=== PATIENT | male | born 1950 | race Caucasian/White ===

== ENCOUNTER → 2016-12-11 | Outpatient (CLI) | payer MEDICARE, OTHER ==
[~2016-12-11] MED LIST: /GLYB5TA PO; /WARF5TA PO; ACET65TA OR; ALDA25TA2 OR; ALLO15TA GT; AMLO10TA2 PO; AMLO10TAB; AMMO12CR4 EX; ATEN50TA2 PO; CO Q10 PO; CO Q10CA PO; COUM10TA OR; COUM1TAB17 PO; D 1010004 PO; FISH100049 PO; FOSI40TA PO; FURO1TAB15 PO; FURO80TA2 PO; GLUC1000 OR; GLUC1000 PO; INSULANT SC; K-TA10TA2 PO; LIVA4TAB PO; METF1000 PO; MULT1CHW39 PO; MULTIVIT PO; NIAC500T PO; NOVOINJ3 SC; PERC5TAB8 OR; SPIR50TA2 PO; [UNRECOGNIZED DRUG - OTHER] PO; byetta SC; kcl; potassium chloride PO
[2016-12-11 11:15] LABS: INR 2.25
[2016-12-11 11:16] LABS: ALBUMIN/GLOBULIN RATIO 1.18 (1.00-1.93); ALKALINE PHOSPHATASE 77 U/L (45-117); ALT/SGPT 45 U/L (12-78); ANION GAP 10 MEQ/L (8-16); AST/SGOT 25 U/L (15-37); BILIRUBIN,TOTAL 0.4 MG/DL (0.2-1.0); BLOOD UREA NITROGEN 15 MG/DL (7-18); CALCIUM LEVEL 9.3 MG/DL (8.8-10.2); CARBON DIOXIDE LEVEL 25 MEQ/L (21-32); CHLORIDE LEVEL 103 MEQ/L (98-107); CREATININE FOR GFR 1.14 MG/DL (0.70-1.30); GLOMERULAR FILTRATION RATE > 60.0 (>49); GLUCOSE, FASTING 187 MG/DL (80-110); POTASSIUM SERUM 4.5 MEQ/L (3.5-5.1); SODIUM LEVEL 138 MEQ/L (136-145); TOTAL PROTEIN 7.4 GM/DL (6.4-8.2)
--- NOTE | 2016-12-11 11:35 | REP ---
Chest two views HISTORY: Hypertension Comparison: 12/13/2010 The lungs are clear. The cardiac silhouette is enlarged. The pulmonary vasculature is normal in appearance. There are old compression fractures of several mid and lower thoracic vertebral bodies. IMPRESSION: Cardiomegaly. Signed by Arpan Hinojosa MD 12/11/2016 11:26 A
[2016-12-11 11:49] LABS: MEAN CORPUSCULAR HEMOGLOBIN 32.1 pg (27.0-33.0); MEAN CORPUSCULAR HGB CONC 35.8 g/dl (32.0-36.5); MEAN CORPUSCULAR VOLUME 89.7 fl (80.0-96.0); RED CELL DISTRIBUTION WIDTH 13.5 % (11.5-14.5); WHITE BLOOD COUNT 8.1 K/mm3 (4.0-10.0)
--- NOTE | 2016-12-12 07:13 | ECGEPIP ---
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
== END ==
LOC: M ADMPAT 09:17
PROVIDERS: ATTEND Orthopaedic Surgery
DX: Z01.818 Encounter for other preprocedural examination (principal); M17.11 Unilateral primary osteoarthritis, right knee; Z79.899 Other long term (current) drug therapy

== ENCOUNTER 2016-12-25 07:21 | Inpatient (IN) | payer MEDICARE, OTHER ==
[2016-12-11 09:49] VITALS: BP 124/82
--- NOTE | 2016-12-17 13:59 | HPE ---
DATE OF ADMISSION: 12/25/2016 HISTORY OF PRESENT ILLNESS: This is a pleasant male with continuing symptomatic right knee osteoarthritis. He consented for right total knee arthroplasty per Dr. Ace Bradford. Medical optimization with Dr. Narvaez on 12/13/3016, which we are awaiting his report. X-rays are consistent with advanced osteoarthritis. ALLERGIES: None known to drugs. MEDICATIONS: List includes: - lisinopril sodium 40 mg - vitamin D3 1000 units - potassium chloride ER 20 mEq - metformin HCl 1000 mg - atenolol 50 mg - amlodipine besylate 10 mg - furosemide 80 mg - warfarin sodium 5 mg - men's multivitamin plus - CoQ 50 mg - allopurinol 300 mg - ammonium lactate 12% - atorvastatin calcium 20 mg - fish oil 1000 mg - Novolin N 100 units/mL - Minoxidil 2.5 mg - spironolactone 25 mg - (insulin, glargine, human) 100 units/mL MEDICAL PROBLEM LIST: Includes symptomatic right knee osteoarthritis. Type 2 diabetes mellitus. Hypertension. Hypercholesteremia. Obesity. Sleep apnea. Heart disease. Insulin dependent diabetes. Atrial fibrillation. SURGICAL HISTORY: Pertinent for left total knee arthroplasty. FAMILY HISTORY: Father , he was killed at age 24 in a coal mine. Mother's history is positive for arthritis, diabetes, hypertension, cancer, heart disease, hypercholesteremia and she is secondary to natural causes. SOCIAL HISTORY: The patient never smoked. Denies ethanol intake and illicit drugs. REVIEW OF SYSTEMS: He denies chest pain, shortness of breath, dyspnea exertion, fever, chills, malaise, upper respiratory or urinary tract symptoms. PHYSICAL EXAMINATION: Height: 5 feet 5-1/2 inches, weight 274, temperature 97.2, blood pressure 138/80, pulse 60, respirations 10. He has a pleasant, obese male in no acute distress. Alert and oriented times three. Mood and affect are appropriate. He is ambulating with favoring of his left lower extremity. Some antalgia about the right. The right knee was inspected. It not effused, ecchymotic, erythematous. Benign and noninfectious looking. He has positive medial joint line tenderness to palpation. Knee range of motion with crepitance through flexion and extension. Knee range of motion 0 in extension. Flexion is past 100. He is stable about the collateral ligaments, patellar and quad tendons without palpable defect. No popliteal fossa mass or pain. Hip range of motion is not limited or irritable for internal and external range of motion. Bowels soft, nontender. Chest rises symmetrically. Lungs are clear to auscultation. Neck is supple. Negative jugular venous distention (JVD). Normocephalic. Chest x-ray showed cardiomegaly as read by Dr. Hinojosa, 12/11/2016 at [facility]. EKG shows atrial fibrillation with controlled ventricular response, delayed anterior R-wave progression, nonspecific T-wave abnormality as read by Dr. Carlos Haro, electronically signed on 12/12/2016. Labs were reviewed. PTT was 24.9. Glucose fasting was 187. ESR 34. Hematocrit 41.8. IMPRESSION 1. Symptomatic right knee osteoarthritis. 2. The patient has consented for right total knee arthroplasty per Dr. Ace Bradford. 3. Medical optimization per Dr. Narvaez, still awaiting his documentation. 4. On-call to OR, 2 grams IV Kefzol in OR. 5. Sequential compression device (SCD) and TEDs in the OR. MTDD
[~2016-12-25] VITALS: Ht 167.6 cm; Wt 126.0 kg
[2016-12-25] VITALS (12 sets, daily range): BP systolic 136–158; BP diastolic 54–84; O2SAT 91–95
[2016-12-25] MEDS ORDERED: LR 1,000 ML IV SCH ×4 (07:30→12:45)
[2016-12-25] MEDS ORDERED: VANCOMYCIN HCL 1,000 MG, VIAL MATE ADAPTER 1 EACH in D5W 250 ML IV ONE ×2 (07:45→20:00)
--- NOTE | 2016-12-25 08:34 | IPN ---
DATE OF ADMISSION: 12/25/2016 The patient was seen and examined. He wished to go ahead with a right total knee arthroplasty. He understands the nature of the procedure, the risks of bleeding, infection and nerves, vessels, wear loosening, blood clots, medical problems, among others. He understands he is at significantly higher risk for complications due to his multiple medical problems and his morbid obesity. Preop medical clearance was obtained, and he was felt to be optimized. We will plan on proceeding with a right total knee arthroplasty.
[2016-12-25] MEDS ORDERED: fentaNYL 100 MCG/2 ML INJECTION (J3010) As Ordered ONE ×3 (09:05→10:18)
[2016-12-25] MEDS ORDERED: MIDAZOLAM INJ 2 MG/2 ML VIAL (J2250) As Ordered ONE ×2 (09:05→09:27)
[2016-12-25] MEDS ORDERED: ceFAZolin 1GM INJ (J0690) As Ordered ONE (09:19)
[2016-12-25] MEDS ORDERED: BUPIVACAINE HCL 0.25% 30 ML VIAL As Ordered ONE (09:19)
[2016-12-25] MEDS ORDERED: EPINEPHrine INJ 1 MG/ML 1ML VIAL/AMP As Ordered ONE (09:20)
[2016-12-25] MEDS ORDERED: TRANEXAMIC ACID 100 MG/ML 10ML VIAL As Ordered ONE (09:20)
[2016-12-25] MEDS ORDERED: ONDANSETRON 4MG/2ML VIAL (J2405) As Ordered ONE (09:26)
[2016-12-25] MEDS ORDERED: LIDOCAINE 2% INJ 100 MG/5 ML SDV (FOR ANES.) As Ordered ONE (09:26)
[2016-12-25] MEDS ORDERED: MORPHINE PCA 1MG/ML 100ML CADD IV PRN (10:00)
[2016-12-25] MEDS ORDERED: MIDAZOLAM INJ 2 MG/2 ML VIAL (J2250) IV ONE (10:00)
[2016-12-25] MEDS ORDERED: NALOXONE INJ 0.4 MG/1 ML VIAL (J2310) IV PRN (10:00)
[2016-12-25] MEDS ORDERED: NALBUPHINE HCL 10 MG/ML AMP (J2300) IV PRN (10:00)
[2016-12-25] MEDS ORDERED: diphenhydrAMINE INJ 50MG/ML VIAL (J1200) IV PRN (10:00)
[2016-12-25] MEDS ORDERED: ONDANSETRON 4MG/2ML VIAL (J2405) IV PRN ×3 (10:00→12:45)
[2016-12-25] MEDS ORDERED: EPIDURAL/PCA KEYS XX PRN (10:00)
[2016-12-25] MEDS ORDERED: fentaNYL 100 MCG/2 ML INJECTION (J3010) IV ONE (10:00)
[2016-12-25] MEDS ORDERED: GLYCOPYRROLATE INJ 0.2 MG/ML 2 ML VIAL As Ordered ONE (11:36)
[2016-12-25] MEDS ORDERED: FLEET ENEMA PR PRN (12:45)
[2016-12-25] MEDS ORDERED: fentaNYL 100 MCG/2 ML INJECTION (J3010) IV PRN (12:45)
[2016-12-25] MEDS ORDERED: ACETAMINOPHEN TAB 650MG DOSE (2X325MG) PO PRN (12:45)
--- NOTE | 2016-12-25 16:26 | CR ---
DATE OF CONSULTATION: 12/25/2016 REASON FOR CONSULTATION: Medical management. CONSULTING PHYSICIAN: Dr. Ace Bradford. PRIMARY CARE PROVIDER: Dr. Narvaez. HISTORY OF PRESENT ILLNESS: Patient is a 66-year-old male with past medical history significant for osteoarthritis, type 2 diabetes, hypertension, hyperlipidemia, sleep apnea, atrial fibrillation, presented to the hospital for an elective right total knee arthroplasty per Dr. Bradford. He was medically optimized for surgery by Dr. Narvaez on 12/13/2016. X-rays of his knee were consistent with advanced osteoarthritis. The patient tolerated procedure well. He was moved to progressive care unit (PCU) postoperatively and hospitalist was consulted for medical management. REVIEW OF SYSTEMS: A 12-point review of system was obtained, all which was negative. PAST MEDICAL HISTORY: Significant for: 1. Type 2 diabetes on insulin. 2. Hypertension. 3. Hyperlipidemia 4. Sleep apnea on continuous positive airway pressure (CPAP) . 5. History of atrial fibrillation. 6. Gout. 7. History of osteoarthritis. ALLERGIES: No known drug allergies. SURGERIES: Significant for left total knee arthroplasty. HOME MEDICATIONS: Include: - lisinopril 40 mg daily - vitamin D3 1,000 units - potassium chloride 20 mEq daily - metformin 100 mg daily - atenolol 50 mg daily - amlodipine 10 mg daily - Lasix 80 mg - Coumadin 5 mg daily - multivitamin - CoQ 50 - allopurinol 300 mg daily - atorvastatin 20 mg daily - fish oil 1000 mg daily - Novolin N sliding scale - minoxidil 2.5 mg daily - spironolactone 25 mg daily - Lantus 56 units twice a day SOCIAL HISTORY: Patient denies any alcohol or tobacco use or illicit drug use. Lives at home with his . FAMILY HISTORY: Noncontributory. PHYSICAL FINDINGS: Blood pressure postoperatively was 145/62, pulse 96% on room air, heart rate 58, temperature 97.9 temporal and respiratory rate 18. HEENT: Pupils equal, round, reactive to light and accommodation. NECK: Supple. No jugular venous distention (JVD). LUNGS: Clear to auscultation bilaterally. CARDIAC: Regular rate and rhythm. ABDOMEN: Soft, nontender, nondistended. Obese. EXTREMITIES: No clubbing or cyanosis. Right knee dressing in place. NEUROLOGIC: Cranial nerves II-XII grossly intact. No focal deficits. LABORATORY FINDINGS: A PTT was 31.4 and fasting glucose was 205. ASSESSMENT/PLAN: 1. Right knee osteoarthritis status post right total knee arthroplasty by Dr. Ace Bradford, postoperative day number zero. Medical optimization was done by Dr. Narvaez outpatient. Patient received intravenous (IV) Kefzol in the operating room (OR). Currently, pain is controlled. Anticoagulation and physical therapy orders per primary team. 2. History of atrial fibrillation. Patient is on Coumadin, which was continued. We will order daily INRs. Heart rate is currently controlled. We will resume patient's beta ness. Patient appears to be in regular rate and rhythm at this time. He states he used to follow up with Dr. Peter a few years ago. 3. History of insulin-dependent diabetes. We will start the patient on insulin sliding scale, consistent carbohydrate diet and we will substitute Lantus with Levemir at bedtime. 4. History of gout. We will resume patient's allopurinol. 5. History of sleep apnea. Patient will use C-PAP machine from home. 6. History of hypertension. Continue amlodipine, atenolol and Lasix 80 mg. 7. Hyperlipidemia. Continue atorvastatin 20 mg daily. 8. Deep venous thrombosis (DVT) prophylaxis. Patient is on Coumadin. Patient will be seen by Dr. Conn in the morning.
[2016-12-25] MEDS ORDERED: WARFARIN SOD 5 MG TAB PO ONE (17:00)
[2016-12-25] MEDS ORDERED: GLUCAGON FOR INJ 1 MG VIAL (J1610) SC PRN (18:00)
[2016-12-25] MEDS ORDERED: GLUCOSE 4 GM CHEW TABLET PO PRN (18:00)
[2016-12-25] MEDS ORDERED: DEXTROSE 50% 50 ML SYRINGE IV PRN (18:00)
--- NOTE | 2016-12-25 20:41 | RO ---
DATE OF PROCEDURE: 12/25/2016 PREOPERATIVE DIAGNOSIS: Right knee osteoarthritis. POSTOPERATIVE DIAGNOSIS: Right knee osteoarthritis. PROCEDURE: Right total knee arthroplasty using a PFC rotating platform, size 4 femur, size 4 tibia, 10 polyethylene, 38 patellar button. SURGEON: Dr. Ace Bradford ACCESS SERVICES REPRESENTATIVE: PATRICIA Barron ANESTHESIA: Spinal. ESTIMATED BLOOD LOSS: Less than 50 mL. COMPLICATIONS: None. INDICATIONS: A 66-year-old gentleman who has had gradually worsening right knee pain. He has been through a left knee in the past and wanted to proceed with a right knee arthroplasty. He understood the nature of the procedure, risks of bleeding, infection, damage to nerves, vessels, persistent pain, blood clots, medical problems, among others. Preop clearance was obtained. He understood he was at increased risk due to his medical problems and obesity. DESCRIPTION OF PROCEDURE: The patient was taken to the operating room and placed in the supine position after spinal anesthesia was induced. The right lower extremity was prepped and draped in the usual sterile fashion. A tourniquet was placed and inflated to 300 mmHg after time-out was performed. I created a longitudinal incision over the anterior aspect of the right knee and then created a medial parapatellar arthrotomy per routine, controlled hemostasis with the cautery, everted the patella, flexed the knee up and used a canal initiating reamer on the femoral side, followed by the intramedullary guide set at 5 degrees of valgus and a 10 mm cut. This was pinned in place by the pathology assistant, and we took an additional 2 mm off the femur due to his flexion contracture. He did have a fair amount of varus deformity, and I anticipated using a posterior stabilized knee because of this deformity in both planes. The distal femoral cut was made by the pathology assistant. I protected soft tissues. I then sized the femur to be a 4, made the pinholes in the end of the femur and then placed the 4-in-1 cutting block and pinned this in place, made the remaining four cuts. We then prepared the tibia, the posterior retractor was placed and the external alignment guide was then secured in the appropriate amount of valgus and posterior slope with a 0 degree block, and this was pinned in place at 2 mm off the low side, which was about 10 off the high side. This cut was made and I removed the excess bone. I then used a senior [employer] administrator to remove soft tissue and osteophytes from the posterior aspect on either side of the knee. I attempted to use spacer blocks. At this point, it was evident I was going to have to go to a posterior stabilize. It was tight posteriorly, so I did remove the PCL and then used the spacer blocks, and it seemed like a 12.5 was pretty close, but it was quite tight medially, so I did an extensive medial release to try to loosen this up. I then used various different spacer blocks and elected to actually re-cut the tibia and removed slightly more off the medial side because I felt like he was in slightly too much valgus, and I had a hard time balancing his tissues and getting the medial side loose enough. He seemed to have a little bit of inherent laxity in his LCL. So, just a wafer of bone was taken off the medial side as I replaced the cutting block and dialed in slightly more varus. Then, the spacer blocks were used and a 12.5 seemed to be appropriate in flexion and extension, although I was between sizes of the 10 and a 12.5. I then placed the box cutting device on the end of the femur, pinned this in place. The remaining cuts were made there with the pathology assistant's help. I placed a size 4 tray on the tibial side, which fit nicely and pinned this in place, drilled, broached and then the trial components were placed. I was satisfied with the 10 polyethylene; this seemed to be an excellent fit and was able to get him out in full extension. He had excellent stability in varus and valgus stress and flexion and extension, did not seem to be overly tight in flexion, although his soft tissue to impinge due to his obesity. Once I was satisfied with the trial components, I then freehand cut the patella, moving about 7 or 8 mm of bone and sized the patella be a 38. Drill holes were placed, and I did have to do a lateral release to allow the patella to track appropriately. The trial components were then removed. The pathology assistant prepared the bone cement in the modern technique on the back table. I then irrigated all surfaces copiously and dried them carefully. I then cemented on the tibial tray, impacted it in place, impacted on the femoral component and impacted this in place, removed excess bone cement. I then placed the 10 rotating platform, size 4 polyethylene and brought the knee out in extension. We then cemented on the patella, held it in place with a clamp, removed excess bone cement, held this in place until the cement was hard. I irrigated copiously. I used some TXA solution and closed the deep layer was some interrupted #1 Vicryl suture, and then, again, I had irrigated very copiously prior to the TXA solution being placed. I then repaired the deep layer with the pathology assistant's help using a running Stratafix suture in each direction. This was a watertight closure. I put the knee through a range of motion, and there was excellent stability and alignment, and there was no clicking and catching noted. We irrigated, closed the subcu with #2-0 Vicryl and the skin with diego. A PainBuster catheter was inserted through the lateral aspect of the knee and secured to the skin in the usual fashion. Tourniquet was deflated. A sterile dressing was applied. He was taken to recovery room in stable condition. There were no known complications. The plan will be routine postop. The pathology assistant was instrumental in holding retractors and preparing the bone cement and assisting in wound closure. This was coded as an unusually difficult case because of the patient's morbid obesity with an excessive body mass index (BMI), and he had a significantly larger leg, his soft tissue balancing was much more challenging. I did have to use a posterior stabilized knee and re-cut the tibia. This took more time than a standard knee would have.
[2016-12-25] MEDS: HumaLOG INSULIN (NovoLOG) PER UNIT SC SCH (21:00)
[2016-12-25] MEDS: POTASSIUM CHLORIDE 10 MEQ SR TABLET PO SCH (21:28)
[2016-12-25] MEDS: LEVEMIR (INSULIN DETEMIR) 1 UNITS/0.01ML SC SCH (21:29)
[2016-12-26] VITALS (11 sets, daily range): BP systolic 140–170; BP diastolic 60–98; O2SAT 89–95
[2016-12-26] MEDS ORDERED: ONDANSETRON 4 MG TAB (S0181) PO PRN (07:00)
[2016-12-26 07:35] LABS: INR 1.04
[2016-12-26 07:36] LABS: MEAN CORPUSCULAR HEMOGLOBIN 31.9 pg (27.0-33.0); MEAN CORPUSCULAR HGB CONC 34.7 g/dl (32.0-36.5); MEAN CORPUSCULAR VOLUME 91.9 fl (80.0-96.0); RED CELL DISTRIBUTION WIDTH 14.1 % (11.5-14.5); WHITE BLOOD COUNT 9.2 K/mm3 (4.0-10.0)
[2016-12-26 08:05] LABS: ALBUMIN 3.5 GM/DL (3.2-5.2); ALBUMIN/GLOBULIN RATIO 0.97 (1.00-1.93); ALKALINE PHOSPHATASE 70 U/L (45-117); ALT/SGPT 55 U/L (12-78); ANION GAP 9 MEQ/L (8-16); AST/SGOT 39 U/L (15-37); BILIRUBIN,TOTAL 0.9 MG/DL (0.2-1.0); BLOOD UREA NITROGEN 14 MG/DL (7-18); CARBON DIOXIDE LEVEL 25 MEQ/L (21-32); CHLORIDE LEVEL 99 MEQ/L (98-107); CREATININE FOR GFR 1.13 MG/DL (0.70-1.30); GLOMERULAR FILTRATION RATE > 60.0 (>49); GLUCOSE, FASTING 219 MG/DL (80-110); POTASSIUM SERUM 4.4 MEQ/L (3.5-5.1); SODIUM LEVEL 133 MEQ/L (136-145); TOTAL PROTEIN 7.1 GM/DL (6.4-8.2)
--- NOTE | 2016-12-26 09:14 | REP ---
AP LATERAL RIGHT KNEE: 12/26/2016 No prior study. CLINICAL HISTORY: Status post right total knee arthroplasty. FINDINGS: Skin diego noted. There is tricompartment right total knee arthroplasty with all three components well-aligned in relationship to the [place] bone and each other joint fluid noted with edema subjacent to the skin diego. Signed by Jeovanny Rich MD 12/26/2016 03:27 P
[2016-12-26] MEDS: LEVEMIR (INSULIN DETEMIR) 1 UNITS/0.01ML SC SCH ×2 (09:20→22:04)
[2016-12-26] MEDS: HumaLOG INSULIN (NovoLOG) PER UNIT SC SCH ×4 (09:20→21:00)
[2016-12-26] MEDS: FUROSEMIDE 80 MG TAB PO SCH (09:21)
[2016-12-26] MEDS: MOM 30ML SUSPENSION UDC PO SCH (09:21)
[2016-12-26] MEDS: VITAMIN D 1,000 INTERNATIONAL UNITS TABLET PO SCH (09:21)
[2016-12-26] MEDS: MIRALAX *UNIT DOSE* 17GM PACKET PO SCH (09:21)
[2016-12-26] MEDS: SPIRONOLACTONE 50 MG TAB PO SCH (09:21)
[2016-12-26] MEDS: ALLOPURINOL 300 MG TAB GT SCH (09:21)
[2016-12-26] MEDS: SENOKOT S TAB PO SCH ×2 (09:21→22:04)
[2016-12-26] MEDS: ATENOLOL 50 MG TAB PO SCH (09:22)
[2016-12-26] MEDS: POTASSIUM CHLORIDE 10 MEQ SR TABLET PO SCH ×2 (09:22→22:04)
[2016-12-26] MEDS: amLODIPine 10 MG TAB PO SCH (09:22)
[2016-12-26] MEDS: PERCOCET 5MG/325MG TAB PO PRN (11:21)
--- NOTE | 2016-12-26 14:11 | IPNPDOC ---
Text Note Date of Service The patient was seen on 12/26/16. NOTE Subjective: Patient is a 66 year old male with a PMHx of IDDM2, HTN, DLP, CASI on CPAP, A. fib, Gout, and OA who presented to the hospital for an elective right total knee arthroplasty with Dr. Bradford. He was medically optimized by Dr. Narvaez on 12/13/2016. He has had his procedure on 12/25/2016. Patient was seen and examined the bedside. Complaints of right leg pain. No other issues. Objective: Vitals (See below) General: Lying in bed, no acute distress, comfortable, AAOx3 HEENT: NC, AT CVS: RRR, +S1S2 Lungs: Fair air entry b/l, -w/r/r Abdomen: Soft, ND, NT, +BSx4 Extremities: +PPx4, - Edema, - Calf tenderness, Right knee in dressing Assessment and plan: 1. Right knee osteoarthritis - s/p Right knee total arthroplasty (POD#1) - Presented for elective surgery after failing medical managment - Pain control as per orthopedic team (primary) 2. Hx of paroxysmal atrial fibrillation - Heart rate well controlled - INR of 1.04 - c/w atenolol for rate control - c/w Warfarin for anticoagulation - Follows with Dr. Peter as an outpatient 3. IDDM2 - c/w ISS and Levemir 50 BID 4. Gout - c/w allopurinol 5. CASI - allow home CPAP use 6. HTN - BP mildly elevated - will monitor over 24 hours to ensure adequate pain control first and then adjust if required - c/w amlodipine, atenolol and lasix with holding parameters 7. DLP - c/w atorvastatin 8. DVT prophylaxis - c/w full anticoagulation with Coumadin Disposition: - will begin physical therapy today VS,Fishbone, I+O VS, Fishbone, I+O Laboratory Tests 12/26/16 07:06 Calcium Level 9.0, Aspartate Amino Transf (AST/SGOT) 39 H, Alanine Aminotransferase (ALT/SGPT) 55, Alkaline Phosphatase 70, Total Bilirubin 0.9, Total Protein 7.1, Albumin 3.5, Red Blood Count 4.14 L, Mean Corpuscular Volume 91.9, Mean Corpuscular Hemoglobin 31.9, Mean Corpuscular Hemoglobin Concent 34.7 , Red Cell Distribution Width 14.1 Vital Signs Date Time Temp Pulse Resp B/P Pulse Ox O2 Delivery O2 Flow Rate FiO2 12/26/16 12:00 97.9 86 18 156/98 96 Room Air 12/25/16 20:00 2.0 I&O- Last 24 Hours up to 6 AM 12/26/16 05:59 Intake Total 1800 ml Output Total 875 ml Balance 925 ml JORGE LUIS BOWLES MD Dec 26, 2016 14:11
[2016-12-26] MEDS ORDERED: WARFARIN SOD 5 MG TAB PO ONE (17:00)
[2016-12-27 06:40] LABS: INR 1.16
[2016-12-27 06:42] LABS: MEAN CORPUSCULAR HEMOGLOBIN 32.5 pg (27.0-33.0); MEAN CORPUSCULAR VOLUME 90.3 fl (80.0-96.0); RED CELL DISTRIBUTION WIDTH 14.2 % (11.5-14.5); WHITE BLOOD COUNT 10.4 K/mm3 (4.0-10.0)
[2016-12-27] MEDS: PERCOCET 5MG/325MG TAB PO PRN ×2 (06:47→18:04)
[2016-12-27 06:56] LABS: ALBUMIN 3.2 GM/DL (3.2-5.2); ALKALINE PHOSPHATASE 71 U/L (45-117); ALT/SGPT 46 U/L (12-78); ANION GAP 9 MEQ/L (8-16); AST/SGOT 28 U/L (15-37); BILIRUBIN,TOTAL 1.1 MG/DL (0.2-1.0); BLOOD UREA NITROGEN 13 MG/DL (7-18); CARBON DIOXIDE LEVEL 25 MEQ/L (21-32); CHLORIDE LEVEL 98 MEQ/L (98-107); CREATININE FOR GFR 1.12 MG/DL (0.70-1.30); GLOMERULAR FILTRATION RATE > 60.0 (>49); GLUCOSE, FASTING 234 MG/DL (80-110); POTASSIUM SERUM 4.4 MEQ/L (3.5-5.1); SODIUM LEVEL 132 MEQ/L (136-145); TOTAL PROTEIN 7.2 GM/DL (6.4-8.2)
[2016-12-27] MEDS ORDERED: EPINEPHrine INJ 1 MG/ML 1ML VIAL/AMP ONE (07:47)
[2016-12-27] MEDS ORDERED: ROPIvacaine 0.5% 30 ML INJECTION (J2795) ONE (07:47)
[2016-12-27] MEDS ORDERED: ENOXAPARIN 40 MG/0.4 ML SYRINGE (J1650) SC ONE (08:30)
[2016-12-27] MEDS: MOM 30ML SUSPENSION UDC PO SCH (09:12)
[2016-12-27] MEDS: MIRALAX *UNIT DOSE* 17GM PACKET PO SCH (09:12)
[2016-12-27] MEDS: ATENOLOL 50 MG TAB PO SCH (09:13)
[2016-12-27] MEDS: ALLOPURINOL 300 MG TAB GT SCH (09:13)
[2016-12-27] MEDS: POTASSIUM CHLORIDE 10 MEQ SR TABLET PO SCH ×2 (09:13→20:44)
[2016-12-27] MEDS: SENOKOT S TAB PO SCH ×2 (09:13→20:45)
[2016-12-27] MEDS: SPIRONOLACTONE 50 MG TAB PO SCH (09:14)
[2016-12-27] MEDS: VITAMIN D 1,000 INTERNATIONAL UNITS TABLET PO SCH (09:14)
[2016-12-27] MEDS: FUROSEMIDE 80 MG TAB PO SCH (09:14)
[2016-12-27] MEDS: LEVEMIR (INSULIN DETEMIR) 1 UNITS/0.01ML SC SCH ×2 (09:14→20:45)
[2016-12-27] MEDS: HumaLOG INSULIN (NovoLOG) PER UNIT SC SCH ×4 (09:15→21:00)
[2016-12-27] MEDS: amLODIPine 10 MG TAB PO SCH (09:18)
[2016-12-27] MEDS ORDERED: MAGNESIUM CITRATE 300 ML BTL PO ONE (09:30)
--- NOTE | 2016-12-27 09:45 | IPNPDOC ---
Text Note Date of Service The patient was seen on 12/27/16. NOTE Subjective: Patient is a 66 year old male with a PMHx of IDDM2, HTN, DLP, CASI on CPAP, A. fib, Gout, and OA who presented to the hospital for an elective right total knee arthroplasty with Dr. Bradford. He was medically optimized by Dr. Narvaez on 12/13/2016. He has had his procedure on 12/25/2016. Patient was seen and examined the bedside. He notes that he was able to do very little with physical therapy yesterday because of pain. He denies any other problems. Objective: Vitals (See below) General: Lying in bed, no acute distress, comfortable, AAOx3 HEENT: NC, AT CVS: RRR, +S1S2 Lungs: Fair air entry b/l, -w/r/r Abdomen: Soft, ND, NT, +BSx4 Extremities: +PPx4, - Edema, - Calf tenderness, Right knee in dressing with pain release device in catheter Assessment and plan: 1. Right knee osteoarthritis - s/p Right knee total arthroplasty (POD#1) - Presented for elective surgery after failing medical management - Pain control as per orthopedic team (primary) - Continue with physical therapy; awaiting disposition recommendation 2. Hx of paroxysmal atrial fibrillation - Heart rate well controlled - INR of 1.16 - c/w atenolol for rate control - c/w Warfarin for anticoagulation - Follows with Dr. Peter as an outpatient 3. IDDM2 - c/w ISS and Levemir 50 BID 4. Gout - c/w allopurinol 5. CASI - allow home CPAP use 6. HTN - BP mildly elevated; likely 2/2 pain - will avoid adjusting blood pressure medications at this time; recommend adjusting pain medications - c/w amlodipine, atenolol and lasix with holding parameters 7. DLP - c/w atorvastatin 8. DVT prophylaxis - c/w full anticoagulation with Coumadin Disposition: - Continue with physical therapy Amaya PARIKH, I+O VSAmaya, I+O Laboratory Tests 12/27/16 06:08 Calcium Level 9.0, Aspartate Amino Transf (AST/SGOT) 28, Alanine Aminotransferase (ALT/SGPT) 46, Alkaline Phosphatase 71, Total Bilirubin 1.1 H, Total Protein 7.2, Albumin 3.2, Red Blood Count 3.93 L, Mean Corpuscular Volume 90.3, Mean Corpuscular Hemoglobin 32.5, Mean Corpuscular Hemoglobin Concent 36.0 , Red Cell Distribution Width 14.2 Vital Signs Date Time Temp Pulse Resp B/P Pulse Ox O2 Delivery O2 Flow Rate FiO2 12/27/16 09:18 99 166/88 12/27/16 07:17 18 Room Air 12/26/16 23:20 99.4 96 12/25/16 20:00 2.0 I&O- Last 24 Hours up to 6 AM 12/27/16 06:00 Intake Total 1740 ml Output Total 2750 ml Balance -1010 ml JORGE LUIS BOWLES MD Dec 27, 2016 09:45
[2016-12-27 14:00] VITALS: BP 139/84
[2016-12-27] MEDS ORDERED: WARFARIN SOD 10 MG TAB PO ONE (17:00)
[2016-12-27 22:00] VITALS: BP 172/86
[2016-12-28] MEDS: PERCOCET 5MG/325MG TAB PO PRN ×3 (00:25→11:32)
[2016-12-28 06:00] VITALS: BP 169/82
[2016-12-28 07:19] LABS: INR 1.2
[2016-12-28 07:24] LABS: ALBUMIN 3.1 GM/DL (3.2-5.2); ALBUMIN/GLOBULIN RATIO 0.94 (1.00-1.93); ALKALINE PHOSPHATASE 66 U/L (45-117); ALT/SGPT 48 U/L (12-78); ANION GAP 9 MEQ/L (8-16); AST/SGOT 28 U/L (15-37); BILIRUBIN,TOTAL 0.6 MG/DL (0.2-1.0); BLOOD UREA NITROGEN 17 MG/DL (7-18); CALCIUM LEVEL 8.4 MG/DL (8.8-10.2); CARBON DIOXIDE LEVEL 26 MEQ/L (21-32); CHLORIDE LEVEL 101 MEQ/L (98-107); CREATININE FOR GFR 1.15 MG/DL (0.70-1.30); GLOMERULAR FILTRATION RATE > 60.0 (>49); GLUCOSE, FASTING 195 MG/DL (80-110); POTASSIUM SERUM 4.4 MEQ/L (3.5-5.1); SODIUM LEVEL 136 MEQ/L (136-145); TOTAL PROTEIN 6.4 GM/DL (6.4-8.2)
[2016-12-28] MEDS: HumaLOG INSULIN (NovoLOG) PER UNIT SC SCH ×2 (07:30→12:02)
[2016-12-28] MEDS ORDERED: PERC5TAB6 PO (08:37)
[2016-12-28] MEDS ORDERED: COUM2.5T11 PO (08:37)
[2016-12-28] MEDS: POTASSIUM CHLORIDE 10 MEQ SR TABLET PO SCH (08:49)
[2016-12-28] MEDS: FUROSEMIDE 80 MG TAB PO SCH (08:49)
[2016-12-28] MEDS: SENOKOT S TAB PO SCH (08:49)
[2016-12-28 08:50] VITALS: BP 169/82
[2016-12-28] MEDS: ATENOLOL 50 MG TAB PO SCH (08:50)
[2016-12-28] MEDS: ALLOPURINOL 300 MG TAB GT SCH (08:50)
[2016-12-28] MEDS: SPIRONOLACTONE 50 MG TAB PO SCH (08:50)
[2016-12-28] MEDS: amLODIPine 10 MG TAB PO SCH (08:50)
[2016-12-28] MEDS: VITAMIN D 1,000 INTERNATIONAL UNITS TABLET PO SCH (08:50)
[2016-12-28] MEDS: MOM 30ML SUSPENSION UDC PO SCH (08:52)
[2016-12-28] MEDS: MIRALAX *UNIT DOSE* 17GM PACKET PO SCH (08:53)
[2016-12-28] MEDS: LEVEMIR (INSULIN DETEMIR) 1 UNITS/0.01ML SC SCH (08:53)
--- NOTE | 2016-12-28 11:14 | IPNPDOC ---
Text Note Date of Service The patient was seen on 12/28/16. NOTE Subjective: Patient is a 66 year old male with a PMHx of IDDM2, HTN, DLP, CASI on CPAP, A. fib, Gout, and OA who presented to the hospital for an elective right total knee arthroplasty with Dr. Bradford. He was medically optimized by Dr. Narvaez on 12/13/2016. He has had his procedure on 12/25/2016. Patient was seen and examined the bedside. He was been progressing with physical therapy and is indicating that he will be cleared by orthopedic surgery Objective: Vitals (See below) General: Lying in bed, no acute distress, comfortable, AAOx3 HEENT: NC, AT CVS: RRR, +S1S2 Lungs: Fair air entry b/l, -w/r/r Abdomen: Soft, ND, NT, +BSx4 Extremities: +PPx4, - Edema, - Calf tenderness, Right knee in dressing with pain release device in catheter Assessment and plan: 1. Right knee osteoarthritis - s/p Right knee total arthroplasty (POD#2) - Presented for elective surgery after failing medical management - Pain control as per orthopedic team (primary) - Continue with physical therapy; still needs to demonstrate safety with stairs 2. Hx of paroxysmal atrial fibrillation - Heart rate well controlled - INR of 1.20 - c/w atenolol for rate control - c/w Warfarin for anticoagulation; managed by orthopedic surgery - Follows with Dr. Peter as an outpatient 3. IDDM2 - c/w ISS and Levemir 50 BID 4. Gout - c/w allopurinol 5. CASI - allow home CPAP use 6. HTN - BP elevated; likely 2/2 pain - will avoid adjusting blood pressure medications at this time; recommend adjusting pain medications - will have outpatient follow up with PCP within 7 days for blood pressure monitoring - c/w amlodipine, atenolol and Lasix with holding parameters 7. DLP - c/w atorvastatin 8. DVT prophylaxis - c/w full anticoagulation with Coumadin Disposition: - Continue with physical therapy KATI,Amaya, I+O VS, Amaya, I+O Laboratory Tests 12/28/16 06:41 Calcium Level 8.4 L, Aspartate Amino Transf (AST/SGOT) 28, Alanine Aminotransferase (ALT/SGPT) 48, Alkaline Phosphatase 66, Total Bilirubin 0.6, Total Protein 6.4, Albumin 3.1 L Vital Signs Date Time Temp Pulse Resp B/P Pulse Ox O2 Delivery O2 Flow Rate FiO2 12/28/16 08:50 95 169/82 12/28/16 07:58 18 Room Air 12/28/16 06:00 97.6 98 12/25/16 20:00 2.0 I&O- Last 24 Hours up to 6 AM 12/28/16 06:00 Intake Total 1080 ml Output Total 1450 ml Balance -370 ml JORGE LUIS BOWLES MD Dec 28, 2016 11:14
[2016-12-28] MEDS ORDERED: WARFARIN SOD 10 MG TAB PO ONE (17:00)
--- NOTE | 2017-01-02 09:57 | DSES ---
DATE OF ADMISSION: 12/25/2016 DATE OF DISCHARGE: 12/28/2016 ADMISSION DIAGNOSIS: Symptomatic right knee osteoarthritis. DISCHARGE DIAGNOSIS: Status post right total knee arthroplasty. HISTORY OF PRESENT ILLNESS: This is a pleasant male with continuing symptomatic right knee osteoarthritis. He had consented for a right total knee arthroplasty per Dr. Ace Bradford. Medical optimization per Dr. Narvaez. X-rays were consistent with advanced osteoarthritis. OPERATION PERFORMED: Right total knee arthroplasty. HOSPITAL COURSE: The patient uneventfully underwent a right total knee arthroplasty under spinal anesthesia and was returned to recovery comfortable. Our hospital team discharged the patient on 12/28/2016 with the following instructions. Weightbearing as tolerated right lower extremity with a walker, Coumadin and thromboembolic deterrent (COLT) stockings times 30 days, Percocet as needed (p.r.n.) pain, diet is regular, Optifoam dressing change in 4 days time. The patient will followup at [facility] [place] in 12-14 days for wound check and staple removal. The patient is encouraged to contact our office sooner with increased pain, redness, drainage, fever greater than 101, or further concerns. JOSE RAUL
== END 2016-12-28 16:10 | disposition home health service (06) | DRG 470 ==
LOC: M OR 07:21 → M PCU 14:10 → M MSPAV 12-26 23:18 → M MS5PR 12-27 18:30
PROVIDERS: ADMIT Orthopaedic Surgery; ATTEND Orthopaedic Surgery
PROC: 0SRC0J9 Replacement of Right Knee Joint with Synthetic Substitute, Cemented, Open Approach (ICD-10-PCS; principal; 2016-12-25 09:00)
DX: M17.11 Unilateral primary osteoarthritis, right knee (principal); Z68.41 Body mass index [BMI] 40.0-44.9, adult; E66.9 Obesity, unspecified; E11.9 Type 2 diabetes mellitus without complications; I48.0 Paroxysmal atrial fibrillation; I10 Essential (primary) hypertension; M10.9 Gout, unspecified; E78.5 Hyperlipidemia, unspecified; G47.33 Obstructive sleep apnea (adult) (pediatric); E78.00 Pure hypercholesterolemia, unspecified; Z79.01 Long term (current) use of anticoagulants; Z79.4 Long term (current) use of insulin; Z96.652 Presence of left artificial knee joint; Z83.3 Family history of diabetes mellitus; Z82.61 Family history of arthritis; Z82.49 Family history of ischemic heart disease and other diseases of the circulatory system; Z80.9 Family history of malignant neoplasm, unspecified; Z99.89 Dependence on other enabling machines and devices

== ENCOUNTER 2017-01-05 15:57 | Emergency (ER) | payer MEDICARE, OTHER ==
[~2017-01-05] VITALS: Ht 167.6 cm; Wt 124.3 kg
[~2017-01-05 15:57] MED LIST changes: +COUM2.5T11 PO; +PERC5TAB6 PO
[2017-01-05] MEDS ORDERED: NS 1,000 ML IV SCH (16:21)
[2017-01-05] MEDS ORDERED: ASPIRIN 81 MG CHEW TABLET PO ONE (16:30)
[2017-01-05 16:41] LABS: BASO % 0.7 % (0.0-1.0); EOS # 0.2 K/mm3 (0.0-0.50); EOS % 3.1 % (0.0-3.0); LARGE UNSTAINED CELL # 0.3 K/mm3 (0.0-0.4); LARGE UNSTAINED CELL % 4.4 % (0.0-4.0); LYMPH # 1.8 K/mm3 (1.5-4.5); LYMPH % 25.6 % (24.0-44.0); MEAN CORPUSCULAR HEMOGLOBIN 31.4 pg (27.0-33.0); MEAN CORPUSCULAR HGB CONC 34.2 g/dl (32.0-36.5); MEAN CORPUSCULAR VOLUME 91.9 fl (80.0-96.0); MONO # 0.5 K/mm3 (0.0-0.8); MONO % 7.8 % (0.0-5.0); NEUTROPHILS % 58.4 % (36.0-66.0); PLATELET COUNT, AUTOMATED 345 k/mm3 (150-450); RED CELL DISTRIBUTION WIDTH 14.1 % (11.5-14.5); VENOUS BASE EXCESS -1.6 (-2.0-2.0); VENOUS O2 SATURATION 67.2 % (60.0-80.0); VENOUS PARTIAL PRESSURE CO2 43.8 mmHg (38.0-50.0); VENOUS STANDARD HCO3 22.5 MEQ/L; VENOUS TOTAL CO2 25.4 MEQ/L (24.0-28.0); WHITE BLOOD COUNT 6.9 K/mm3 (4.0-10.0)
[2017-01-05] MEDS: IPRATROPIUM 0.5MG/ALBUTEROL 2.5MG INH SOL UD 3ML (DUONEB)(J7620) NEB PRN ×2 (16:46→18:43)
[2017-01-05 16:48] LABS: INR 1.51
--- NOTE | 2017-01-05 17:20 | REPUSA ---
Clinical history: Pain, swelling. Findings: The common femoral, superficial femoral, popliteal, and other deep venous structures compre ss normally and demonstrate normal color Doppler flow. Normal venous waveforms with augmentation are seen. Impression: No evidence of deep vein thrombosis in either femoral popliteal venous system.
[2017-01-05 17:23] LABS: ALBUMIN 3.6 GM/DL (3.2-5.2); ALBUMIN/GLOBULIN RATIO 0.92 (1.00-1.93); ALKALINE PHOSPHATASE 99 U/L (45-117); ALT/SGPT 53 U/L (12-78); ANION GAP 10 MEQ/L (8-16); AST/SGOT 31 U/L (15-37); BILIRUBIN,DIRECT 0.3 MG/DL (0.0-0.2); BILIRUBIN,TOTAL 0.7 MG/DL (0.2-1.0); BLOOD UREA NITROGEN 30 MG/DL (7-18); CARBON DIOXIDE LEVEL 25 MEQ/L (21-32); CHLORIDE LEVEL 99 MEQ/L (98-107); CREATININE FOR GFR 1.45 MG/DL (0.70-1.30); GLOMERULAR FILTRATION RATE 51.8 (>49); GLUCOSE, FASTING 201 MG/DL (80-110); POTASSIUM SERUM 4.6 MEQ/L (3.5-5.1); SODIUM LEVEL 134 MEQ/L (136-145); TOTAL PROTEIN 7.5 GM/DL (6.4-8.2)
[2017-01-05] MEDS ORDERED: ISOVUE-370 76% 100ML VIAL (Q9967) As Ordered ONE (17:41)
--- NOTE | 2017-01-05 18:40 | REPUSA ---
CT angiogram of the chest Clinical statement: Chest pain and shortness of breath. Technique: Multiple axial CT images were obtained from the thoracic inlet through the upper abdomen a fter a bolus administration of nonionic intravenous contrast. Coronal and sagittal reconstructions we re also obtained. No comparison is available. Findings: The pulmonary arteries re moderately well opacified with contrast, without any central int raluminal filling defects to suggest embolism. Because of the suboptimal contrast bolus however, smal l peripheral emboli cannot completely be excluded. The thoracic aorta is unremarkable. Thyroid gland is within normal limits. There is no thoracic lymphadenopathy. There are no pericardial or pleural ef fusions. The lungs are clear. Limited imaging of the upper abdomen is unremarkable. There is mild dif fuse low attenuation of the liver. There are no suspicious osseous lesions. Impression: 1. No evidence of any central pulmonary embolism. Small peripheral emboli cannot be fully evaluate b ecause of the suboptimal contrast bolus. 2. No acute intrapulmonary disease. 3. Fatty infiltration of the liver.
[2017-01-05] MEDS ORDERED: ALBUTEROL 90 MCG/ACT 8GM HFA INHALER INH ONE (19:15)
[2017-01-05 19:22] VITALS: BP 144/73
--- NOTE | 2017-01-06 07:22 | ECGEPIP ---
Stationary ECG Study [facility] - ED Test Date: 2017-01-05 Pat Name: FRANNIE SOTO Department: Room: - Gender: M [employer]: JTerri : [id number] Requested By: CARLOS PITTS Order Number: [id number] Reading MD: Tati Wagner Measurements Intervals [place] Rate: 80 P: DC: 0 QRS: 21 QRSD: 103 T: 51 QT: 384 QTc: 446 Interpretive Statements ATRIAL FIBRILLATION INFERIOR MYOCARDIAL INFARCTION, PROBABLY OLD NSTTW ABNORMALITY INCREASED RATE 12/11/16 Electronically Signed On 01-06-2017 7:21:37 EDT by Tati Wagner
--- NOTE | 2017-01-06 08:27 | REP ---
A PA and lateral chest the patient sitting: Comparison is 12/11/2016. Cardiac size is borderline enlarged, unchanged. Lung cuevas are clear. The home, mediastinum, and bony thorax are unremarkable. Signed by Rafael Montes MD 01/06/2017 08:19 A
== END 2017-01-05 19:25 | disposition home or self-care (01) ==
LOC: M ED 16:37
DX: R06.00 Dyspnea, unspecified (principal); I10 Essential (primary) hypertension; I25.10 Atherosclerotic heart disease of native coronary artery without angina pectoris; J98.4 Other disorders of lung; Z79.899 Other long term (current) drug therapy; Z79.01 Long term (current) use of anticoagulants; Z79.84 Long term (current) use of oral hypoglycemic drugs
CPT/HCPCS: 71020; 71275; 80048; 80076; 82550; 82553; 82803; 83880; 84484; 85025; 85610; 87040; 93005; 93041; 93971; 94640; 99285; Q9967

== ENCOUNTER → 2018-04-01 | Outpatient (CLI) | payer MEDICARE, OTHER ==
[2018-04-01 19:56] LABS: HEMATOCRIT 39.6 % (42.0-52.0); MEAN CORPUSCULAR HEMOGLOBIN 32.9 pg (27.0-33.0); MEAN CORPUSCULAR HGB CONC 35.4 g/dl (32.0-36.5); PLATELET COUNT, AUTOMATED 214 10^3/uL (150-450); RED BLOOD COUNT 4.26 10^6/uL (4.30-6.10); RED CELL DISTRIBUTION WIDTH 13.8 % (11.5-14.5); WHITE BLOOD COUNT 13.6 10^3/uL (4.0-10.0)
[2018-04-01 20:06] LABS: ALBUMIN 3.7 GM/DL (3.2-5.2); ALKALINE PHOSPHATASE 72 U/L (45-117); ALT/SGPT 40 U/L (12-78); ANION GAP 11 MEQ/L (8-16); AST/SGOT 31 U/L (7-37); BILIRUBIN,TOTAL 0.7 MG/DL (0.2-1.0); BLOOD UREA NITROGEN 21 MG/DL (7-18); CALCIUM LEVEL 9.3 MG/DL (8.8-10.2); CARBON DIOXIDE LEVEL 25 MEQ/L (21-32); CHLORIDE LEVEL 101 MEQ/L (98-107); CREATININE FOR GFR 1.37 MG/DL (0.70-1.30); GLUCOSE, FASTING 188 MG/DL (70-100); POTASSIUM SERUM 4.7 MEQ/L (3.5-5.1); SODIUM LEVEL 137 MEQ/L (136-145); TOTAL PROTEIN 7.4 GM/DL (6.4-8.2)
== END ==
LOC: M WUC 15:47
DX: I51.7 Cardiomegaly (principal)
CPT/HCPCS: 80053

== ENCOUNTER 2021-12-03 16:22 | Emergency (ER) | payer OTHER ==
[~2021-12-03] VITALS: Ht 167.6 cm; Wt 118.2 kg
[~2021-12-03 16:22] MED LIST changes: -/GLYB5TA PO; -/WARF5TA PO; -ALLO15TA GT; +ALLO300T2 GT; -AMLO10TA2 PO; +AMLO1TAB25 PO; -AMMO12CR4 EX; +AMMO12CR7 EX; -COUM2.5T11 PO; +COUM2.5T17 PO; +FOSI40TA59 PO; -FURO1TAB15 PO; +GLYB1TAB29 PO; -METF1000 PO; +METF10004 PO; -MULT1CHW39 PO; +MULT200T7 PO; +PERC5TAB12 PO; -PERC5TAB6 PO; -SPIR50TA2 PO; +SPIR50TA4 PO
[2021-12-03 18:00] LABS: BASO % 0.3 % (0.0-1.0); EOS # 0.3 10^3/uL (0.0-0.5); EOS % 2.9 % (0.0-3.0); HEMATOCRIT 42.1 % (42.0-52.0); LYMPH % 18.3 % (24.0-44.0); MEAN CORPUSCULAR HEMOGLOBIN 31.5 pg (27.0-33.0); MEAN CORPUSCULAR HGB CONC 33.3 g/dl (32.0-36.5); MEAN CORPUSCULAR VOLUME 94.8 fl (80.0-96.0); MONO # 1.2 10^3/uL (0.0-0.8); MONO % 10.8 % (2.0-8.0); NEUTROPHILS # 7.2 10^3/uL (1.5-8.5); NEUTROPHILS % 67.1 % (36.0-66.0); PLATELET COUNT, AUTOMATED 283 10^3/uL (150-450); RED BLOOD COUNT 4.44 10^6/uL (4.30-6.10); WHITE BLOOD COUNT 10.8 10^3/uL (4.0-10.0)
[2021-12-03 18:24] LABS: ALBUMIN 3.1 GM/DL (3.2-5.2); ALT/SGPT 38 U/L (12-78); BILIRUBIN,DIRECT < 0.1 MG/DL (0.0-0.2); BILIRUBIN,TOTAL 0.8 MG/DL (0.2-1.0); BLOOD UREA NITROGEN 37 MG/DL (7-18); C REACTIVE PROTEIN QUANTITATIV 9.81 MG/DL (0.00-0.30); CALCIUM LEVEL 8.8 MG/DL (8.8-10.2); CARBON DIOXIDE LEVEL 22 MEQ/L (21-32); CHLORIDE LEVEL 100 MEQ/L (98-107); CREATININE FOR GFR 1.82 MG/DL (0.70-1.30); GLOMERULAR FILTRATION RATE 39.3 (>42); GLUCOSE, FASTING 119 MG/DL (70-100); POTASSIUM SERUM 6.2 MEQ/L (3.5-5.1); SODIUM LEVEL 131 MEQ/L (136-145); TOTAL PROTEIN 7.2 GM/DL (6.4-8.2)
[2021-12-03] MEDS ORDERED: NS 1,000 ML IV ONE (18:25)
[2021-12-03 19:46] LABS: CALCIUM LEVEL 9.1 MG/DL (8.8-10.2); CREATININE FOR GFR 1.74 MG/DL (0.70-1.30); GLOMERULAR FILTRATION RATE 41.4 (>42); POTASSIUM SERUM 4.7 MEQ/L (3.5-5.1)
[2021-12-03 19:59] LABS: RSV AMPLIFICATION NEGATIVE (NEGATIVE)
[2021-12-03 22:14] VITALS: BP 119/69
== END 2021-12-03 22:21 | disposition short-term general hospital (02) ==
LOC: M ED 16:22
DX: S93.324A Dislocation of tarsometatarsal joint of right foot, initial encounter (principal); E66.9 Obesity, unspecified; X58.XXXA Exposure to other specified factors, initial encounter; Y92.9 Unspecified place or not applicable; Y93.9 Activity, unspecified; Y99.9 Unspecified external cause status; I48.91 Unspecified atrial fibrillation; I51.9 Heart disease, unspecified; E11.21 Type 2 diabetes mellitus with diabetic nephropathy; I10 Essential (primary) hypertension; E78.5 Hyperlipidemia, unspecified; M10.9 Gout, unspecified; M19.071 Primary osteoarthritis, right ankle and foot; Z79.01 Long term (current) use of anticoagulants; Z79.4 Long term (current) use of insulin; Z79.899 Other long term (current) drug therapy

== ENCOUNTER → 2022-02-26 | Outpatient (REF) | payer OTHER ==
[2022-02-26 17:23] LABS: INR 2.3; PROTHROMBIN TIME 25.7 SECONDS (12.7-14.5)
== END ==
LOC: M LAB REF 16:19
PROVIDERS: ATTEND Internal Medicine
DX: Z51.81 Encounter for therapeutic drug level monitoring (principal); Z79.01 Long term (current) use of anticoagulants

== ENCOUNTER → 2022-05-25 | Outpatient (CLI) | payer OTHER ==
[~2022-05-25] MED LIST changes: +ALLO100T PO; +D-101000 PO; +ELIQ5TAB PO; +FISH13602 PO
[2022-05-25 16:28] LABS: HEMATOCRIT 34.8 % (42.0-52.0); HEMOGLOBIN 11.3 g/dl (13.5-17.5); MEAN CORPUSCULAR HEMOGLOBIN 31.2 pg (27.0-33.0); MEAN CORPUSCULAR HGB CONC 32.5 g/dl (32.0-36.5); MEAN CORPUSCULAR VOLUME 96.1 fl (80.0-96.0); PLATELET COUNT, AUTOMATED 421 10^3/uL (150-450); RED BLOOD COUNT 3.62 10^6/uL (4.30-6.10); WHITE BLOOD COUNT 10.8 10^3/uL (4.0-10.0)
[2022-05-25 17:10] LABS: ALBUMIN 2.9 GM/DL (3.2-5.2); BILIRUBIN,TOTAL 0.5 MG/DL (0.2-1.0); CALCIUM LEVEL 9.9 MG/DL (8.8-10.2); CREATININE FOR GFR 1.61 MG/DL (0.70-1.30); FREE T4 1.11 NG/DL (0.76-1.46); GLOMERULAR FILTRATION RATE 45.1 (>42); POTASSIUM SERUM 5.6 MEQ/L (3.5-5.1); THYROID STIMULATING HORMONE 1.23 uIU/ML (0.358-3.740); TOTAL PROTEIN 7.3 GM/DL (6.4-8.2)
== END ==
LOC: M WUC 11:13
PROVIDERS: ATTEND Physician Assistant
DX: J06.9 Acute upper respiratory infection, unspecified (principal); R53.83 Other fatigue; Z20.828 Contact with and (suspected) exposure to other viral communicable diseases

== ENCOUNTER 2022-05-29 19:34 | Inpatient (IN) | payer OTHER ==
[~2022-05-29] VITALS: Ht 167.6 cm; Wt 119.5 kg
[~2022-05-29 19:34] MED LIST changes: -ALLO100T PO; -D-101000 PO; -ELIQ5TAB PO; -FISH13602 PO
[2022-05-29] MEDS ORDERED: ELIQ5TAB PO (19:52)
[2022-05-29 21:28] LABS: BASO % 0.3 % (0.0-1.0); EOS # 0.3 10^3/uL (0.0-0.5); EOS % 1.8 % (0.0-3.0); HEMATOCRIT 34.9 % (42.0-52.0); HEMOGLOBIN 11.5 g/dl (13.5-17.5); LYMPH # 2.7 10^3/uL (1.5-5.0); LYMPH % 18.5 % (24.0-44.0); MEAN CORPUSCULAR VOLUME 91.1 fl (80.0-96.0); MONO # 1.2 10^3/uL (0.0-0.8); MONO % 8.4 % (2.0-8.0); NEUTROPHILS # 10.2 10^3/uL (1.5-8.5); NEUTROPHILS % 70.1 % (36.0-66.0); PLATELET COUNT, AUTOMATED 427 10^3/uL (150-450); RED BLOOD COUNT 3.83 10^6/uL (4.30-6.10); WHITE BLOOD COUNT 14.6 10^3/uL (4.0-10.0)
[2022-05-29 21:49] LABS: INR 1.13; PROTHROMBIN TIME 14.9 SECONDS (12.7-14.5)
[2022-05-29 21:51] LABS: PARTIAL THROMBOPLASTIN TIME 62.6 SECONDS (25.9-37.0)
[2022-05-29 22:23] LABS: ALBUMIN 2.8 GM/DL (3.2-5.2); BILIRUBIN,DIRECT 0.2 MG/DL (0.0-0.2); BILIRUBIN,TOTAL 0.4 MG/DL (0.2-1.0); CALCIUM LEVEL 9.5 MG/DL (8.8-10.2); CREATININE FOR GFR 1.9 MG/DL (0.70-1.30); GLOMERULAR FILTRATION RATE 37.3 (>42); POTASSIUM SERUM 5.8 MEQ/L (3.5-5.1); TOTAL PROTEIN 7.4 GM/DL (6.4-8.2)
[2022-05-29] MEDS ORDERED: NS 1,000 ML IV ONE (22:55)
[2022-05-29 23:57] LABS: NT-PRO BNP 228 PG/ML (<125)
[2022-05-30] MEDS ORDERED: LevoFLOXacin IV 750 MG in IV 1 EA IV ONE (01:30)
[2022-05-30] MEDS ORDERED: GLUCAGON INJ 1MG VIAL SC PRN (02:45)
[2022-05-30] MEDS ORDERED: GLUCOSE 4GM CHEW TABLET PO PRN (02:45)
[2022-05-30] MEDS ORDERED: DEXTROSE 50% 50 ML SYRINGE IV PRN (02:45)
[2022-05-30] MEDS: NS 1,000 ML IV SCH ×2 (03:00→11:08)
[2022-05-30] MEDS ORDERED: FISH13602 PO (03:21)
[2022-05-30] MEDS ORDERED: ALLO100T PO (03:21)
[2022-05-30] MEDS ORDERED: D-101000 PO (03:22)
[2022-05-30] MEDS ORDERED: HOME MED LIST COMPLETE! XX SCH (03:25)
[2022-05-30] MEDS: cefTRIAXone SOD 1 GM in D5W MINI-BAG PLUS 50 ML IV SCH (03:47)
[2022-05-30] MEDS: DOXYCYCLINE HYCLATE 100 MG in D5W MINI-BAG PLUS 100 ML IV SCH ×2 (04:54→17:51)
[2022-05-30] MEDS ORDERED: ENTER DRUG NAME HERE (PATIENT'S OWN MED) PO SCH ×3 (06:05)
[2022-05-30 06:08] LABS: HEPATITIS B SURFACE ANTIGEN NEGATIVE (NEGATIVE)
[2022-05-30 06:34] LABS: HEPATITIS C VIRUS ABY INDEX < 0.0 INDEX (<0.8)
[2022-05-30 06:35] LABS: HEPATITIS B CORE ANTIBODY IGM NEGATIVE (NEGATIVE)
[2022-05-30] MEDS ORDERED: metFORMIN (GLUCOPHAGE) 1000MG TABLET PO SCH (08:00)
[2022-05-30] MEDS: allopurinoL 100 MG TAB PO SCH (08:53)
[2022-05-30] MEDS: INSULIN LISPRO (NovoLOG) PER UNIT SC SCH ×4 (08:54→20:06)
[2022-05-30] MEDS: APIXABAN 5 MG TAB (ELIQUIS) PO SCH ×2 (08:57→22:34)
[2022-05-30] MEDS ORDERED: FOSINOPRIL 10MG TABLET PO SCH (09:00)
[2022-05-30] MEDS ORDERED: POTASSIUM CHLORIDE 10MEQ SR TABLET PO SCH (09:00)
[2022-05-30] MEDS ORDERED: SPIRONOLACTONE 50 MG TAB PO SCH (09:00)
[2022-05-30] MEDS ORDERED: FUROSEMIDE 80 MG TAB PO SCH (09:00)
[2022-05-30] MEDS ORDERED: lisinopriL 40MG TAB PO SCH (09:00)
[2022-05-30 09:19] LABS: HEMATOCRIT 33.5 % (42.0-52.0); HEMOGLOBIN 10.8 g/dl (13.5-17.5); MEAN CORPUSCULAR HEMOGLOBIN 30.2 pg (27.0-33.0); MEAN CORPUSCULAR HGB CONC 32.2 g/dl (32.0-36.5); MEAN CORPUSCULAR VOLUME 93.6 fl (80.0-96.0); PLATELET COUNT, AUTOMATED 395 10^3/uL (150-450); RED BLOOD COUNT 3.58 10^6/uL (4.30-6.10); WHITE BLOOD COUNT 11.3 10^3/uL (4.0-10.0)
[2022-05-30 09:52] LABS: ALBUMIN 2.6 GM/DL (3.2-5.2); BILIRUBIN,TOTAL 0.4 MG/DL (0.2-1.0); CALCIUM LEVEL 9.9 MG/DL (8.8-10.2); CREATININE FOR GFR 1.58 MG/DL (0.70-1.30); GLOMERULAR FILTRATION RATE 46.1 (>42); POTASSIUM SERUM 4.3 MEQ/L (3.5-5.1); TOTAL PROTEIN 8.2 GM/DL (6.4-8.2)
[2022-05-30] MEDS: ATORVASTATIN 20 MG TAB PO SCH (11:05)
[2022-05-30 13:45] VITALS: BP 134/76
[2022-05-30 17:53] LABS: CK-MB VALUE MASS 4.9 NG/ML (<3.6); MB/CK RELATIVE INDEX 5.33 (< OR =4)
[2022-05-30 19:47] VITALS: BP 139/75
[2022-05-31] MEDS ORDERED: UNRESOLVED PATIENT OWN MED ORDER XX SCH (00:01)
[2022-05-31] MEDS: cefTRIAXone SOD 1 GM in D5W MINI-BAG PLUS 50 ML IV SCH (03:56)
[2022-05-31] MEDS: DOXYCYCLINE HYCLATE 100 MG in D5W MINI-BAG PLUS 100 ML IV SCH ×2 (04:54→17:40)
[2022-05-31 05:00] VITALS: BP 143/67
[2022-05-31 08:39] VITALS: BP 148/74
[2022-05-31] MEDS: ATORVASTATIN 20 MG TAB PO SCH (08:39)
[2022-05-31] MEDS: INSULIN LISPRO (NovoLOG) PER UNIT SC SCH ×4 (08:39→19:38)
[2022-05-31] MEDS: allopurinoL 100 MG TAB PO SCH (08:39)
[2022-05-31] MEDS: APIXABAN 5 MG TAB (ELIQUIS) PO SCH ×2 (08:39→19:38)
[2022-05-31] MEDS ORDERED: FUROSEMIDE 40MG/4ML VIAL (J1940) IV ONE ×2 (09:00→14:00)
[2022-05-31 09:53] LABS: BASO # 0.1 10^3/uL (0.0-0.2); BASO % 0.6 % (0.0-1.0); EOS # 0.3 10^3/uL (0.0-0.5); EOS % 3.2 % (0.0-3.0); HEMATOCRIT 29.2 % (42.0-52.0); HEMOGLOBIN 9.6 g/dl (13.5-17.5); LYMPH # 1.4 10^3/uL (1.5-5.0); LYMPH % 15.9 % (24.0-44.0); MEAN CORPUSCULAR HEMOGLOBIN 30.9 pg (27.0-33.0); MEAN CORPUSCULAR HGB CONC 32.9 g/dl (32.0-36.5); MEAN CORPUSCULAR VOLUME 93.9 fl (80.0-96.0); MONO # 0.8 10^3/uL (0.0-0.8); MONO % 8.5 % (2.0-8.0); NEUTROPHILS # 6.3 10^3/uL (1.5-8.5); NEUTROPHILS % 70.9 % (36.0-66.0); PLATELET COUNT, AUTOMATED 366 10^3/uL (150-450); RED BLOOD COUNT 3.11 10^6/uL (4.30-6.10); WHITE BLOOD COUNT 8.9 10^3/uL (4.0-10.0)
[2022-05-31 10:22] LABS: ERYTHROCYTE SEDIMENTATION RATE 126 mm/hr (0-20)
[2022-05-31 10:28] LABS: CK-MB VALUE MASS 3.3 NG/ML (<3.6); MB/CK RELATIVE INDEX 5.41 (< OR =4)
[2022-05-31 10:33] LABS: ALBUMIN 2.4 GM/DL (3.2-5.2); BILIRUBIN,TOTAL 0.3 MG/DL (0.2-1.0); C REACTIVE PROTEIN QUANTITATIV 10.5 MG/DL (0.00-0.30); CALCIUM LEVEL 9.2 MG/DL (8.8-10.2); CREATININE FOR GFR 1.28 MG/DL (0.70-1.30); GLOMERULAR FILTRATION RATE 58.8 (>42); MAGNESIUM LEVEL 2.2 MG/DL (1.8-2.4); POTASSIUM SERUM 5.1 MEQ/L (3.5-5.1); TOTAL PROTEIN 6.4 GM/DL (6.4-8.2)
[2022-05-31] MEDS ORDERED: DOXY-350 PO (11:34)
[2022-05-31] MEDS ORDERED: BACITAB PO (11:34)
[2022-05-31] MEDS ORDERED: CEFU50TA PO (11:34)
[2022-05-31] MEDS ORDERED: TOLVAPTAN 7.5 MG HALF-TAB PO ONE (13:00)
[2022-05-31 14:00] VITALS: BP 152/71
[2022-05-31 14:36] LABS: CALCIUM LEVEL 9.1 MG/DL (8.8-10.2); CREATININE FOR GFR 1.52 MG/DL (0.70-1.30); GLOMERULAR FILTRATION RATE 48.2 (>42); MAGNESIUM LEVEL 2.1 MG/DL (1.8-2.4)
[2022-05-31 14:40] LABS: FREE THYROXINE INDEX 1.9 % (1.4-3.8); THYROID STIMULATING HORMONE 0.911 uIU/ML (0.358-3.740); THYROXINE (T4) 5.1 UG/DL (4.5-12.0)
[2022-05-31 19:41] VITALS: BP 129/51
[2022-06-01] MEDS: cefTRIAXone SOD 1 GM in D5W MINI-BAG PLUS 50 ML IV SCH (03:30)
[2022-06-01] MEDS: DOXYCYCLINE HYCLATE 100 MG in D5W MINI-BAG PLUS 100 ML IV SCH (04:02)
[2022-06-01 06:00] VITALS: BP 143/83
[2022-06-01] MEDS: allopurinoL 100 MG TAB PO SCH (08:48)
[2022-06-01] MEDS: APIXABAN 5 MG TAB (ELIQUIS) PO SCH (08:48)
[2022-06-01] MEDS: ATORVASTATIN 20 MG TAB PO SCH (08:48)
[2022-06-01] MEDS: INSULIN LISPRO (NovoLOG) PER UNIT SC SCH ×2 (08:48→12:00)
[2022-06-01 09:38] LABS: CALCIUM LEVEL 9.6 MG/DL (8.8-10.2); CREATININE FOR GFR 1.34 MG/DL (0.70-1.30); GLOMERULAR FILTRATION RATE 55.8 (>42); MAGNESIUM LEVEL 2.2 MG/DL (1.8-2.4); POTASSIUM SERUM 4.9 MEQ/L (3.5-5.1)
[2022-06-01] MEDS ORDERED: ELIQ5TAB PO (10:21)
[2022-06-01] MEDS ORDERED: METO1TAB87 PO (10:50)
[2022-06-01] MEDS ORDERED: SELF1KIT MC (10:50)
== END 2022-06-01 12:23 | disposition home or self-care (01) | DRG 194 ==
LOC: M ED 19:34 → M ED INP 05-30 01:57 → ENRESERV 05-30 11:14 → M MSPAV 05-30 13:10
PROVIDERS: ADMIT Family Medicine; ATTEND General Practice
DX: J18.9 Pneumonia, unspecified organism (principal); N17.9 Acute kidney failure, unspecified; E87.1 Hypo-osmolality and hyponatremia; I50.30 Unspecified diastolic (congestive) heart failure; M10.9 Gout, unspecified; E78.5 Hyperlipidemia, unspecified; G47.33 Obstructive sleep apnea (adult) (pediatric); I48.91 Unspecified atrial fibrillation; K80.20 Calculus of gallbladder without cholecystitis without obstruction; E11.40 Type 2 diabetes mellitus with diabetic neuropathy, unspecified; Z79.899 Other long term (current) drug therapy; J44.9 Chronic obstructive pulmonary disease, unspecified; Z79.4 Long term (current) use of insulin; I11.0 Hypertensive heart disease with heart failure

== ENCOUNTER → 2022-06-12 | Outpatient (REF) | payer OTHER ==
[~2022-06-12] MED LIST changes: +ALLO100T PO; +BACITAB PO; +CEFU50TA PO; +D-101000 PO; +DOXY-350 PO; +ELIQ5TAB PO; +FISH13602 PO; +METO1TAB87 PO; +SELF1KIT MC
== END ==
LOC: M LAB REF 14:52
PROVIDERS: ATTEND Internal Medicine
DX: J18.8 Other pneumonia, unspecified organism (principal); I13.0 Hypertensive heart and chronic kidney disease with heart failure and stage 1 through stage 4 chronic kidney disease, or unspecified chronic kidney disease

== ENCOUNTER → 2022-07-03 | Outpatient (CLI) | payer OTHER ==
[2022-07-03 19:10] LABS: ALBUMIN 3.2 GM/DL (3.2-5.2); BLOOD UREA NITROGEN 15 MG/DL (7-18); CALCIUM LEVEL 9.5 MG/DL (8.8-10.2); CARBON DIOXIDE LEVEL 28 MEQ/L (21-32); CHLORIDE LEVEL 99 MEQ/L (98-107); CREATININE FOR GFR 1.17 MG/DL (0.70-1.30); GLOMERULAR FILTRATION RATE > 60.0 (>42); GLUCOSE, FASTING 183 MG/DL (70-100); NT-PRO BNP 294 PG/ML (<125); PHOSPHORUS LEVEL 2.6 MG/DL (2.5-4.9); POTASSIUM SERUM 4.3 MEQ/L (3.5-5.1); SODIUM LEVEL 135 MEQ/L (136-145)
== END ==
LOC: M WUC 11:51
PROVIDERS: ATTEND Internal Medicine Cardiovascular Disease
DX: I50.42 Chronic combined systolic (congestive) and diastolic (congestive) heart failure (principal); I70.0 Atherosclerosis of aorta; I77.819 Aortic ectasia, unspecified site

== ENCOUNTER → 2022-07-17 | Outpatient (CLI) | payer OTHER ==
[~2022-07-17] MED LIST changes: -DOXY-350 PO; +DOXY-444 PO
[2022-07-17 12:25] LABS: BASO % 0.5 % (0.0-1.0); EOS # 0.4 10^3/uL (0.0-0.5); HEMATOCRIT 40.9 % (42.0-52.0); HEMOGLOBIN 12.8 g/dl (13.5-17.5); LYMPH % 24.9 % (24.0-44.0); MEAN CORPUSCULAR HEMOGLOBIN 29.6 pg (27.0-33.0); MEAN CORPUSCULAR HGB CONC 31.3 g/dl (32.0-36.5); MEAN CORPUSCULAR VOLUME 94.7 fl (80.0-96.0); MONO # 0.7 10^3/uL (0.0-0.8); MONO % 8.9 % (2.0-8.0); NEUTROPHILS # 4.8 10^3/uL (1.5-8.5); NEUTROPHILS % 60.4 % (36.0-66.0); PLATELET COUNT, AUTOMATED 263 10^3/uL (150-450); RED BLOOD COUNT 4.32 10^6/uL (4.30-6.10)
[2022-07-17 13:52] LABS: CALCIUM LEVEL 9.6 MG/DL (8.8-10.2); CREATININE FOR GFR 1.36 MG/DL (0.70-1.30); GLOMERULAR FILTRATION RATE 54.8 (>42); MAGNESIUM LEVEL 2.6 MG/DL (1.8-2.4); POTASSIUM SERUM 4.8 MEQ/L (3.5-5.1)
== END ==
LOC: M WUC 10:01
PROVIDERS: ATTEND Physician Assistant
DX: R94.31 Abnormal electrocardiogram [ECG] [EKG] (principal); I50.42 Chronic combined systolic (congestive) and diastolic (congestive) heart failure

== ENCOUNTER → 2022-07-30 | Outpatient (CLI) | payer OTHER | LOC: M CARPUL 10:49 | PROVIDERS: ATTEND Internal Medicine Cardiovascular Disease | DX: R06.02 Shortness of breath (principal) ==

== ENCOUNTER → 2022-10-17 | Outpatient (REF) | payer OTHER | LOC: M LAB REF 16:35 | PROVIDERS: ATTEND Internal Medicine | DX: R06.02 Shortness of breath (principal) ==

== ENCOUNTER 2022-10-21 19:43 | Inpatient (IN) | payer MEDICARE, OTHER ==
[~2022-10-21] VITALS: Ht 165.1 cm; Wt 115.0 kg
[2022-10-21] MEDS: FUROSEMIDE 40MG/4ML VIAL IV SCH ×2 (01:28→01:29)
[2022-10-21 20:25] LABS: BASO % 0.4 % (0.0-1.0); EOS % 0.4 % (0.0-3.0); HEMATOCRIT 29.6 % (42.0-52.0); LYMPH % 20.8 % (24.0-44.0); MEAN CORPUSCULAR HEMOGLOBIN 25.1 pg (27.0-33.0); MEAN CORPUSCULAR HGB CONC 30.4 g/dl (32.0-36.5); MEAN CORPUSCULAR VOLUME 82.5 fl (80.0-96.0); MONO # 0.5 10^3/uL (0.0-0.8); MONO % 10.6 % (2.0-8.0); NEUTROPHILS # 3.1 10^3/uL (1.5-8.5); NEUTROPHILS % 67.4 % (36.0-66.0); PLATELET COUNT, AUTOMATED 291 10^3/uL (150-450); RED BLOOD COUNT 3.59 10^6/uL (4.30-6.10); WHITE BLOOD COUNT 4.6 10^3/uL (4.0-10.0)
[2022-10-21 20:50] LABS: ALBUMIN 2.9 G/DL (3.2-5.2); ALKALINE PHOSPHATASE 129 U/L (46-116); ALT/SGPT 21 U/L (7.0-40); AST/SGOT 76 U/L (<34); BILIRUBIN,TOTAL 0.7 MG/DL (0.3-1.2); BLOOD UREA NITROGEN 21 MG/DL (9-23); CALCIUM LEVEL 8.7 MG/DL (8.3-10.6); CARBON DIOXIDE LEVEL 25 MMOL/L (20-31); CHLORIDE LEVEL 94 MMOL/L (98-107); CK-MB VALUE MASS < 1.0 NG/ML (<3.6); CPK CREATINE PHOSPHOKINASE 75 U/L (46-171); CREATININE FOR GFR 1.25 MG/DL (0.70-1.30); GLOMERULAR FILTRATION RATE > 60.0 (>42); GLUCOSE, FASTING 92 MG/DL (74-106); MAGNESIUM LEVEL 2.1 MG/DL (1.8-2.4); MB/CK RELATIVE INDEX 1.33 (< OR =4); POTASSIUM SERUM 4.2 MMOL/L (3.5-5.1); SODIUM LEVEL 131 MMOL/L (136-145); TOTAL PROTEIN 6.4 G/DL (5.7-8.2)
[2022-10-21] MEDS ORDERED: FUROSEMIDE 100MG/10ML VIAL IV ONE (21:05)
[2022-10-21] MEDS ORDERED: ACETAMINOPHEN TAB 650MG DOSE (2X325MG) PO ONE (21:05)
[2022-10-21] MEDS ORDERED: ISOVUE-370 76% 100ML VIAL As Ordered ONE (22:03)
[2022-10-21 22:47] LABS: INR 1.42; PROTHROMBIN TIME 17.6 SECONDS (12.5-14.5)
[2022-10-21 22:48] LABS: PARTIAL THROMBOPLASTIN TIME 48.2 SECONDS (24.8-34.2)
[2022-10-21] MEDS ORDERED: cefTRIAXone SOD 1 GM in D5W MINI-BAG PLUS 50 ML IV ONE (23:05)
[2022-10-21] MEDS ORDERED: AZITHROMYCIN INJ 500 MG, VIAL MATE ADAPTER 1 EACH in NS 250 ML IV ONE (23:05)
[2022-10-21 23:09] LABS: MB/CK RELATIVE INDEX 1.75 (< OR =4)
[2022-10-21 23:12] LABS: D-DIMER QUANT > 4000 ng/ml (<500)
[2022-10-21] MEDS ORDERED: ZYLO100T2 PO (23:20)
[2022-10-21] MEDS ORDERED: METF-839 PO (23:20)
[2022-10-21] MEDS ORDERED: ELIQ5TAB PO (23:20)
[2022-10-21] MEDS ORDERED: ASPI81TA26 PO (23:24)
[2022-10-21] MEDS ORDERED: CARV3.12 PO (23:24)
[2022-10-21] MEDS ORDERED: JARD1TAB PO (23:24)
[2022-10-21] MEDS ORDERED: ENTR1TAB7 PO (23:24)
[2022-10-21] MEDS ORDERED: ATOR80TA59 PO (23:24)
[2022-10-21] MEDS ORDERED: SPIR50TA4 PO (23:24)
[2022-10-21] MEDS ORDERED: HOME MED LIST COMPLETE! XX SCH (23:25)
[2022-10-21] MEDS ORDERED: ACETAMINOPHEN TAB 650MG DOSE (2X325MG) PO PRN (23:35)
[2022-10-21] MEDS ORDERED: RAMELTEON 8 MG TAB (ROZEREM) PO PRN (23:45)
[2022-10-21] MEDS ORDERED: DEXTROSE 50% 50ML SYRINGE IV PRN (23:45)
[2022-10-21] MEDS ORDERED: GLUCOSE 4GM CHEW TABLET PO PRN (23:45)
[2022-10-21] MEDS ORDERED: GLUCAGON INJ 1MG VIAL SC PRN (23:45)
[2022-10-22] VITALS (15 sets, daily range): BP systolic 94–143; BP diastolic 52–72; O2SAT 91–98
[2022-10-22] MEDS: ATORVASTATIN 20 MG TAB PO SCH ×2 (01:26→20:58)
[2022-10-22] MEDS: CARVedilol 3.125 MG TAB PO SCH ×3 (01:27→21:00)
[2022-10-22] MEDS: APIXABAN 5 MG TAB (ELIQUIS) PO SCH ×3 (01:27→20:59)
[2022-10-22] MEDS: FUROSEMIDE 40MG/4ML VIAL IV SCH ×2 (01:29→05:05)
[2022-10-22] MEDS: ENTRESTO 49-51MG TABLET (SACUBITRIL/VALSARTAN) PO SCH ×2 (01:39→09:20)
[2022-10-22] MEDS ORDERED: IPRATROPIUM 0.5MG/ALBUTEROL 2.5MG INH SOL UD 3ML (DUONEB) NEB ONE (04:20)
[2022-10-22 04:35] LABS: APPEARANCE, URINE MANUAL CLEAR (CLEAR); COLOR, URINE MANUAL LT YELLOW (YELLOW)
[2022-10-22 04:36] LABS: BILIRUBIN, URINE MANUAL NEGATIVE (NEGATIVE); BLOOD URINE MANUAL NEGATIVE (NEGATIVE); GLUCOSE, URINE (UA) MANUAL 3+(500 MG/DL) mg/dL (NEGATIVE); KETONE, URINE MANUAL NEGATIVE (NEGATIVE); LEUKOCYTE ESTERASE, URINE MAN NEGATIVE (NEGATIVE); NITRITE, URINE MANUAL NEGATIVE (NEGATIVE); PH,URINE MAN 6.5 UNITS (5.0 - 7.0); PROTEIN, URINE MANUAL NEGATIVE (NEGATIVE); SPECIFIC GRAVITY,URINE MANUAL 1.005 (1.002-1.035); UROBILINOGEN, URINE MANUAL NORMAL (NORMAL)
[2022-10-22 06:08] LABS: HEMATOCRIT 28.9 % (42.0-52.0); HEMOGLOBIN 8.7 g/dl (13.5-17.5); MEAN CORPUSCULAR HEMOGLOBIN 25.1 pg (27.0-33.0); MEAN CORPUSCULAR HGB CONC 30.1 g/dl (32.0-36.5); MEAN CORPUSCULAR VOLUME 83.5 fl (80.0-96.0); PLATELET COUNT, AUTOMATED 253 10^3/uL (150-450); RED BLOOD COUNT 3.46 10^6/uL (4.30-6.10); WHITE BLOOD COUNT 3.8 10^3/uL (4.0-10.0)
[2022-10-22 06:33] LABS: BLOOD UREA NITROGEN 19 MG/DL (9-23); CALCIUM LEVEL 8.8 MG/DL (8.3-10.6); CARBON DIOXIDE LEVEL 27 MMOL/L (20-31); CHLORIDE LEVEL 95 MMOL/L (98-107); CREATININE FOR GFR 1.24 MG/DL (0.70-1.30); GLOMERULAR FILTRATION RATE > 60.0 (>42); GLUCOSE, FASTING 123 MG/DL (74-106); MAGNESIUM LEVEL 2.2 MG/DL (1.8-2.4); POTASSIUM SERUM 3.2 MMOL/L (3.5-5.1); SODIUM LEVEL 133 MMOL/L (136-145)
[2022-10-22] MEDS: LEVEMIR (INSULIN DETEMIR) 1 UNITS/0.01ML SC SCH ×2 (08:56→21:05)
[2022-10-22] MEDS: INSULIN LISPRO (NovoLOG) PER UNIT SC SCH ×4 (08:57→20:56)
[2022-10-22] MEDS: DOXYCYCLINE HYCLATE 100MG TABLET PO SCH ×2 (08:58→20:59)
[2022-10-22] MEDS: ASPIRIN 81MG ENTERIC TABLET PO SCH (08:58)
[2022-10-22] MEDS: allopurinoL 100 MG TAB PO SCH (08:58)
[2022-10-22] MEDS ORDERED: SPIRONOLACTONE 50 MG TAB PO SCH (09:00)
[2022-10-22] MEDS: LEVALBUTEROL 1.25MG 0.5ML CONCENTRATE NEB INH SCH ×5 (09:53→23:42)
[2022-10-22] MEDS: MIDODRINE 5 MG TAB PO SCH ×4 (10:36→20:59)
[2022-10-22] MEDS ORDERED: POTASSIUM CHLORIDE 10MEQ SR TABLET PO ONE (11:00)
[2022-10-22] MEDS ORDERED: SODIUM CHLORIDE NASAL 0.65% SPRAY BTL (OCEAN) PRN (12:15)
[2022-10-22] MEDS: FUROSEMIDE injection 250 MG in D5W 225 ML IV SCH (12:17)
[2022-10-22 12:35] LABS: BLOOD UREA NITROGEN 22 MG/DL (9-23); CALCIUM LEVEL 8.7 MG/DL (8.3-10.6); CARBON DIOXIDE LEVEL 26 MMOL/L (20-31); CHLORIDE LEVEL 96 MMOL/L (98-107); CREATININE FOR GFR 1.19 MG/DL (0.70-1.30); GLOMERULAR FILTRATION RATE > 60.0 (>42); GLUCOSE, FASTING 166 MG/DL (74-106); MAGNESIUM LEVEL 1.9 MG/DL (1.8-2.4); POTASSIUM SERUM 3.3 MMOL/L (3.5-5.1); SODIUM LEVEL 132 MMOL/L (136-145)
[2022-10-22] MEDS: POTASSIUM CHLORIDE 10MEQ SR TABLET PO SCH (21:04)
[2022-10-22] MEDS: cefTRIAXone SOD 1 GM in D5W MINI-BAG PLUS 50 ML IV SCH (23:32)
[2022-10-23] VITALS (20 sets, daily range): BP systolic 97–146; BP diastolic 55–64; O2SAT 89–97
[2022-10-23] MEDS: MIDODRINE 5 MG TAB PO SCH ×4 (01:27→17:38)
[2022-10-23] MEDS: LEVALBUTEROL 1.25MG 0.5ML CONCENTRATE NEB INH SCH ×6 (03:39→23:13)
[2022-10-23] MEDS: INSULIN LISPRO (NovoLOG) PER UNIT SC SCH ×4 (07:30→21:00)
[2022-10-23] MEDS: DOXYCYCLINE HYCLATE 100MG TABLET PO SCH ×2 (09:44→21:38)
[2022-10-23] MEDS: APIXABAN 5 MG TAB (ELIQUIS) PO SCH ×2 (09:44→21:38)
[2022-10-23] MEDS: CARVedilol 3.125 MG TAB PO SCH ×2 (09:44→21:42)
[2022-10-23] MEDS: allopurinoL 100 MG TAB PO SCH (09:44)
[2022-10-23] MEDS: ASPIRIN 81MG ENTERIC TABLET PO SCH (09:44)
[2022-10-23] MEDS: LEVEMIR (INSULIN DETEMIR) 1 UNITS/0.01ML SC SCH ×2 (09:45→21:38)
[2022-10-23] MEDS: POTASSIUM CHLORIDE 10MEQ SR TABLET PO SCH ×2 (09:45→21:38)
[2022-10-23] MEDS: FUROSEMIDE injection 250 MG in D5W 225 ML IV SCH (12:40)
[2022-10-23 15:38] LABS: BLOOD UREA NITROGEN 24 MG/DL (9-23); CALCIUM LEVEL 8.4 MG/DL (8.3-10.6); CARBON DIOXIDE LEVEL 26 MMOL/L (20-31); CHLORIDE LEVEL 96 MMOL/L (98-107); CREATININE FOR GFR 1.21 MG/DL (0.70-1.30); GLOMERULAR FILTRATION RATE > 60.0 (>42); GLUCOSE, FASTING 157 MG/DL (74-106); POTASSIUM SERUM 3.8 MMOL/L (3.5-5.1); SODIUM LEVEL 133 MMOL/L (136-145)
[2022-10-23] MEDS ORDERED: metOLazone 5 MG TAB PO ONE (18:45)
[2022-10-23] MEDS: ATORVASTATIN 20 MG TAB PO SCH (21:39)
[2022-10-23] MEDS: cefTRIAXone SOD 1 GM in D5W MINI-BAG PLUS 50 ML IV SCH (23:14)
[2022-10-24] MEDS: LEVALBUTEROL 1.25MG 0.5ML CONCENTRATE NEB INH SCH ×5 (04:00→20:47)
[2022-10-24 04:05] VITALS: BP 116/53
[2022-10-24 04:27] LABS: BASO % 0.4 % (0.0-1.0); EOS # 0.2 10^3/uL (0.0-0.5); HEMATOCRIT 30.3 % (42.0-52.0); HEMOGLOBIN 9.2 g/dl (13.5-17.5); LYMPH # 1.1 10^3/uL (1.5-5.0); MEAN CORPUSCULAR HEMOGLOBIN 25.2 pg (27.0-33.0); MEAN CORPUSCULAR HGB CONC 30.4 g/dl (32.0-36.5); MONO # 0.8 10^3/uL (0.0-0.8); MONO % 15.6 % (2.0-8.0); NEUTROPHILS % 59.4 % (36.0-66.0); PLATELET COUNT, AUTOMATED 309 10^3/uL (150-450); RED BLOOD COUNT 3.65 10^6/uL (4.30-6.10)
[2022-10-24 04:53] LABS: BLOOD UREA NITROGEN 23 MG/DL (9-23); CARBON DIOXIDE LEVEL 26 MMOL/L (20-31); CHLORIDE LEVEL 98 MMOL/L (98-107); CREATININE FOR GFR 1.22 MG/DL (0.70-1.30); GLOMERULAR FILTRATION RATE > 60.0 (>42); GLUCOSE, FASTING 104 MG/DL (74-106); POTASSIUM SERUM 4.2 MMOL/L (3.5-5.1); SODIUM LEVEL 133 MMOL/L (136-145)
[2022-10-24 08:00] VITALS: BP 118/57
[2022-10-24] MEDS: metOLazone 5 MG TAB PO SCH (08:43)
[2022-10-24] MEDS: allopurinoL 100 MG TAB PO SCH (08:44)
[2022-10-24] MEDS: ASPIRIN 81MG ENTERIC TABLET PO SCH (08:44)
[2022-10-24] MEDS: APIXABAN 5 MG TAB (ELIQUIS) PO SCH ×2 (08:44→21:24)
[2022-10-24] MEDS: DOXYCYCLINE HYCLATE 100MG TABLET PO SCH ×2 (08:45→21:24)
[2022-10-24] MEDS: MIDODRINE 5 MG TAB PO SCH ×3 (08:45→17:29)
[2022-10-24] MEDS: CARVedilol 3.125 MG TAB PO SCH ×2 (08:47→21:25)
[2022-10-24] MEDS: LEVEMIR (INSULIN DETEMIR) 1 UNITS/0.01ML SC SCH ×2 (08:48→21:24)
[2022-10-24] MEDS: POTASSIUM CHLORIDE 10MEQ SR TABLET PO SCH ×2 (08:48→21:23)
[2022-10-24] MEDS: INSULIN LISPRO (NovoLOG) PER UNIT SC SCH ×4 (08:49→21:00)
[2022-10-24] MEDS ORDERED: MOM 30ML SUSPENSION UDC PO ONE (08:50)
[2022-10-24] MEDS: TORSEMIDE 20 MG TAB PO SCH ×2 (09:28→17:29)
[2022-10-24] MEDS: SENOKOT S TAB PO SCH ×2 (09:28→21:24)
[2022-10-24 12:20] VITALS: BP 95/60
[2022-10-24 16:00] VITALS: BP 98/58
[2022-10-24 18:45] VITALS: BP 138/70
[2022-10-24 20:04] VITALS: BP 104/54
[2022-10-24] MEDS: ATORVASTATIN 20 MG TAB PO SCH (21:23)
[2022-10-24] MEDS: cefTRIAXone SOD 1 GM in D5W MINI-BAG PLUS 50 ML IV SCH (22:33)
[2022-10-25] MEDS: LEVALBUTEROL 1.25MG 0.5ML CONCENTRATE NEB INH SCH ×4 (00:15→11:25)
[2022-10-25 05:57] LABS: BASO % 0.5 % (0.0-1.0); EOS # 0.3 10^3/uL (0.0-0.5); EOS % 4.5 % (0.0-3.0); HEMATOCRIT 32.1 % (42.0-52.0); HEMOGLOBIN 9.8 g/dl (13.5-17.5); LYMPH # 1.2 10^3/uL (1.5-5.0); LYMPH % 20.4 % (24.0-44.0); MEAN CORPUSCULAR HEMOGLOBIN 25.5 pg (27.0-33.0); MEAN CORPUSCULAR HGB CONC 30.5 g/dl (32.0-36.5); MEAN CORPUSCULAR VOLUME 83.6 fl (80.0-96.0); MONO # 0.7 10^3/uL (0.0-0.8); NEUTROPHILS # 3.5 10^3/uL (1.5-8.5); NEUTROPHILS % 61.7 % (36.0-66.0); PLATELET COUNT, AUTOMATED 305 10^3/uL (150-450); RED BLOOD COUNT 3.84 10^6/uL (4.30-6.10); WHITE BLOOD COUNT 5.7 10^3/uL (4.0-10.0)
[2022-10-25 06:00] VITALS: BP 96/61
[2022-10-25 06:27] LABS: CALCIUM LEVEL 9.2 MG/DL (8.3-10.6); CREATININE FOR GFR 1.31 MG/DL (0.70-1.30); GLOMERULAR FILTRATION RATE 57.3 (>42); POTASSIUM SERUM 4.1 MMOL/L (3.5-5.1)
[2022-10-25] MEDS: INSULIN LISPRO (NovoLOG) PER UNIT SC SCH ×2 (07:57→12:06)
[2022-10-25] MEDS: MIDODRINE 5 MG TAB PO SCH ×2 (07:58→12:06)
[2022-10-25] MEDS: LEVEMIR (INSULIN DETEMIR) 1 UNITS/0.01ML SC SCH (07:58)
[2022-10-25] MEDS: ASPIRIN 81MG ENTERIC TABLET PO SCH (07:59)
[2022-10-25] MEDS: POTASSIUM CHLORIDE 10MEQ SR TABLET PO SCH (07:59)
[2022-10-25] MEDS: allopurinoL 100 MG TAB PO SCH (07:59)
[2022-10-25] MEDS: metOLazone 5 MG TAB PO SCH (07:59)
[2022-10-25 08:00] VITALS: BP 112/93
[2022-10-25] MEDS: SENOKOT S TAB PO SCH (08:00)
[2022-10-25] MEDS: CARVedilol 3.125 MG TAB PO SCH (08:00)
[2022-10-25] MEDS: APIXABAN 5 MG TAB (ELIQUIS) PO SCH (08:00)
[2022-10-25] MEDS: TORSEMIDE 20 MG TAB PO SCH (08:01)
[2022-10-25] MEDS: DOXYCYCLINE HYCLATE 100MG TABLET PO SCH (08:02)
[2022-10-25] MEDS ORDERED: CEFD300C41 PO (11:23)
[2022-10-25] MEDS ORDERED: METO5TA PO (11:23)
[2022-10-25] MEDS ORDERED: DOXY100T PO (11:23)
[2022-10-25] MEDS ORDERED: METO25TA PO (13:46)
[2022-10-25] MEDS ORDERED: ENTR1TAB7 PO (13:46)
== END 2022-10-25 14:08 | disposition home health service (06) | DRG 291 ==
LOC: M ED 19:43 → M ED INP 23:35 → M MSPAV 10-22 00:36 → M PCU 10-22 12:55 → M MSPAV 10-24 18:42
PROVIDERS: ADMIT Internal Medicine; ATTEND Internal Medicine Nephrology
DX: I11.0 Hypertensive heart disease with heart failure (principal); I50.23 Acute on chronic systolic (congestive) heart failure; J18.9 Pneumonia, unspecified organism; I48.20 Chronic atrial fibrillation, unspecified; J98.11 Atelectasis; E87.1 Hypo-osmolality and hyponatremia; Z68.41 Body mass index [BMI] 40.0-44.9, adult; E66.01 Morbid (severe) obesity due to excess calories; I27.20 Pulmonary hypertension, unspecified; E87.6 Hypokalemia; Z95.1 Presence of aortocoronary bypass graft; Z79.01 Long term (current) use of anticoagulants; I25.10 Atherosclerotic heart disease of native coronary artery without angina pectoris; E11.9 Type 2 diabetes mellitus without complications; E78.5 Hyperlipidemia, unspecified; M10.9 Gout, unspecified; Z79.899 Other long term (current) drug therapy; Z79.52 Long term (current) use of systemic steroids; G47.33 Obstructive sleep apnea (adult) (pediatric)

== ENCOUNTER 2023-01-16 07:26 | Day surgery (SDC) | payer OTHER, MEDICARE ==
[~2023-01-16] VITALS: Ht 167.6 cm; Wt 108.0 kg
[~2023-01-16 07:26] MED LIST changes: +ASPI81TA26 PO; +ATOR80TA59 PO; +BSS IRRIG/VANCO(10MG)/TOBRA(5MG)/EPINEPH(1:1000-0.5CC)500ML BAG-ORONLY IR ONE; +CARV3.12 PO; +CEFD300C41 PO; +CEFUROXIME 1MG/0.1ML INTRACAMERAL INJ As Ordered ONE; +DOXY100T PO; +ENTR1TAB7 PO; +JARD1TAB PO; +LIDOCAINE 1% SDV 5ML VIAL As Ordered ONE; +LIDOCAINE 3.5 % 1ML OPHTH TOPICAL GEL OU ONE; +METF-839 PO; +METO25TA PO; +METO5TA PO; +MIDAZOLAM INJ 2MG/2ML VIAL As Ordered ONE; +OFLOXACIN 0.3 % (OCUFLOX) OPTH SOL 5ML OD ONE; +PHENYLEPHRINE 10% OPHTH SOL 5ML OD PRN; +SEMA1PEN2 SQ; +ZYLO100T2 PO; +fentaNYL 100 MCG/2 ML INJECTION As Ordered ONE
[2023-01-16] MEDS: TROPICAMIDE 1% OPHTH SOLN 15ML OD SCH ×3 (07:48→08:01)
[2023-01-16] MEDS: CYCLOPENTOLATE 1% OPHTH SOLN 2ML BTL OD SCH ×3 (07:48→08:00)
[2023-01-16] MEDS: PHENYLEPHRINE 2.5% OPHTH SOL 2ML OD SCH ×3 (07:48→08:00)
[2023-01-16] MEDS ORDERED: DUOVISC (0.50ML VISCOAT/0.85ML PROVISC) OPHTH KIT IO ONE (08:50)
[2023-01-16 08:52] VITALS: BP 124/67
[2023-01-16] MEDS ORDERED: DUOVISC (0.50ML VISCOAT/0.85ML PROVISC) OPHTH KIT As Ordered ONE (10:17)
== END 2023-01-16 09:05 | disposition home or self-care (01) ==
LOC: M SDC 07:26
PROVIDERS: ATTEND Ophthalmology
DX: H25.11 Age-related nuclear cataract, right eye (principal); I10 Essential (primary) hypertension; E78.5 Hyperlipidemia, unspecified; E11.9 Type 2 diabetes mellitus without complications; J44.9 Chronic obstructive pulmonary disease, unspecified; R06.83 Snoring; G47.33 Obstructive sleep apnea (adult) (pediatric); Z79.810 Long term (current) use of selective estrogen receptor modulators (SERMs); Z79.02 Long term (current) use of antithrombotics/antiplatelets; Z79.4 Long term (current) use of insulin; Z79.899 Other long term (current) drug therapy
CPT/HCPCS: 66984; 92015; J0697; J2250; J3010; V2632

== ENCOUNTER 2023-02-13 10:37 | Day surgery (SDC) | payer OTHER, MEDICARE ==
[~2023-02-13] VITALS: Ht 167.6 cm; Wt 107.7 kg
[~2023-02-13 10:37] MED LIST changes: +CYCLOPENTOLATE 1% OPHTH SOLN 2ML BTL OS SCH; -MIDAZOLAM INJ 2MG/2ML VIAL As Ordered ONE; -OFLOXACIN 0.3 % (OCUFLOX) OPTH SOL 5ML OD ONE; +OFLOXACIN 0.3 % (OCUFLOX) OPTH SOL 5ML OS ONE; -PHENYLEPHRINE 10% OPHTH SOL 5ML OD PRN; +PHENYLEPHRINE 10% OPHTH SOL 5ML OS PRN; +PHENYLEPHRINE 2.5% OPHTH SOL 2ML OS SCH; +TROPICAMIDE 1% OPHTH SOLN 15ML OS SCH; -fentaNYL 100 MCG/2 ML INJECTION As Ordered ONE
[2023-02-13] MEDS ORDERED: MIDAZOLAM INJ 2MG/2ML VIAL As Ordered ONE (11:12)
[2023-02-13] MEDS ORDERED: fentaNYL 100 MCG/2 ML INJECTION As Ordered ONE (11:12)
[2023-02-13 13:35] VITALS: BP 132/81
== END 2023-02-13 13:40 | disposition home or self-care (01) ==
LOC: M SDC 10:37
PROVIDERS: ATTEND Ophthalmology
DX: H25.12 Age-related nuclear cataract, left eye (principal); I25.10 Atherosclerotic heart disease of native coronary artery without angina pectoris; I10 Essential (primary) hypertension; E78.5 Hyperlipidemia, unspecified; E11.9 Type 2 diabetes mellitus without complications; G47.33 Obstructive sleep apnea (adult) (pediatric); J44.9 Chronic obstructive pulmonary disease, unspecified; M10.9 Gout, unspecified; Z79.84 Long term (current) use of oral hypoglycemic drugs; Z79.4 Long term (current) use of insulin; Z79.899 Other long term (current) drug therapy; Z79.82 Long term (current) use of aspirin
CPT/HCPCS: 66984; 92015; J0697; J2250; J3010; V2788

== ENCOUNTER → 2023-05-17 | Outpatient (CLI) | payer OTHER, MEDICARE ==
[~2023-05-17] MED LIST changes: -BSS IRRIG/VANCO(10MG)/TOBRA(5MG)/EPINEPH(1:1000-0.5CC)500ML BAG-ORONLY IR ONE; -CEFUROXIME 1MG/0.1ML INTRACAMERAL INJ As Ordered ONE; -CYCLOPENTOLATE 1% OPHTH SOLN 2ML BTL OS SCH; -K-TA10TA2 PO; -LIDOCAINE 1% SDV 5ML VIAL As Ordered ONE; -LIDOCAINE 3.5 % 1ML OPHTH TOPICAL GEL OU ONE; -OFLOXACIN 0.3 % (OCUFLOX) OPTH SOL 5ML OS ONE; -PHENYLEPHRINE 10% OPHTH SOL 5ML OS PRN; -PHENYLEPHRINE 2.5% OPHTH SOL 2ML OS SCH; +POTA-165 PO; -TROPICAMIDE 1% OPHTH SOLN 15ML OS SCH
[2023-05-17 18:48] LABS: HEMATOCRIT 39.8 % (42.0-52.0); HEMOGLOBIN 13.1 g/dl (13.5-17.5); MEAN CORPUSCULAR HEMOGLOBIN 30.8 pg (27.0-33.0); MEAN CORPUSCULAR HGB CONC 32.9 g/dl (32.0-36.5); MEAN CORPUSCULAR VOLUME 93.6 fl (80.0-96.0); PLATELET COUNT, AUTOMATED 252 10^3/uL (150-450); RED BLOOD COUNT 4.25 10^6/uL (4.30-6.10); WHITE BLOOD COUNT 8.7 10^3/uL (4.0-10.0)
[2023-05-17 19:07] LABS: ALBUMIN 3.9 G/DL (3.2-5.2); BILIRUBIN,TOTAL 0.7 MG/DL (0.3-1.2); CALCIUM LEVEL 9.8 MG/DL (8.3-10.6); CHOLESTEROL RISK RATIO 4.39 (<5); CREATININE FOR GFR 1.27 MG/DL (0.70-1.30); GLOMERULAR FILTRATION RATE 59.2 (>42); HDL CHOLESTEROL 40.5 MG/DL (>40); LDL CHOLESTEROL 93.9 MG/DL (<100); MAGNESIUM LEVEL 2.4 MG/DL (1.8-2.4); NON-HDL-C 137.5 MG/DL; TOTAL PROTEIN 7.3 G/DL (5.7-8.2)
== END ==
LOC: M WUC 11:07
PROVIDERS: ATTEND Physician Assistant
DX: I25.10 Atherosclerotic heart disease of native coronary artery without angina pectoris (principal); I50.42 Chronic combined systolic (congestive) and diastolic (congestive) heart failure; E78.2 Mixed hyperlipidemia

== ENCOUNTER → 2023-11-05 | Outpatient (REF) | payer OTHER, MEDICARE ==
[~2023-11-05] MED LIST changes: +CEFD1CAP9 PO; -CEFD300C41 PO
[2023-11-05 18:49] LABS: URIC ACID 6.8 MG/DL (3.7-9.2)
[2023-11-05 18:52] LABS: PHOSPHORUS LEVEL 3.4 MG/DL (2.4-5.1); PTH INTACT 70.3 PG/ML (18.5-88.0)
== END ==
LOC: M LAB REF 16:26
PROVIDERS: ATTEND Internal Medicine
DX: I13.0 Hypertensive heart and chronic kidney disease with heart failure and stage 1 through stage 4 chronic kidney disease, or unspecified chronic kidney disease (principal); N18.32 Chronic kidney disease, stage 3b; I50.9 Heart failure, unspecified

== ENCOUNTER 2024-08-17 06:48 | Day surgery (SDC) | payer OTHER, MEDICARE ==
[~2024-08-17] VITALS: Ht 167.6 cm; Wt 112.5 kg
[~2024-08-17 06:48] MED LIST changes: +DOXY-440 PO; -DOXY-444 PO; +FURO40TA2 PO; -MULT200T7 PO; +MULT200T9 PO
[2024-08-17] MEDS ORDERED: propofoL 200 MG/20 ML VIAL As Ordered ONE (07:24)
[2024-08-17] MEDS ORDERED: D5W 500 ML IV STA (07:24)
[2024-08-17 07:59] VITALS: TEMP 97.7
[2024-08-17 08:23] VITALS: BP 125/72; O2SAT 98
== END 2024-08-17 08:23 | disposition home or self-care (01) ==
LOC: M OPP 06:48
PROVIDERS: ATTEND Internal Medicine Gastroenterology
DX: Z12.11 Encounter for screening for malignant neoplasm of colon (principal); K64.0 First degree hemorrhoids; K57.30 Diverticulosis of large intestine without perforation or abscess without bleeding; Z86.0100 Personal history of colon polyps, unspecified; I48.91 Unspecified atrial fibrillation; E11.9 Type 2 diabetes mellitus without complications; I10 Essential (primary) hypertension; J44.9 Chronic obstructive pulmonary disease, unspecified; E78.00 Pure hypercholesterolemia, unspecified; G47.30 Sleep apnea, unspecified; Z79.82 Long term (current) use of aspirin; Z79.899 Other long term (current) drug therapy; Z79.85 Long-term (current) use of injectable non-insulin antidiabetic drugs; Z79.4 Long term (current) use of insulin; Z79.84 Long term (current) use of oral hypoglycemic drugs; Z95.1 Presence of aortocoronary bypass graft

== ENCOUNTER → 2024-10-07 | Outpatient (REF) | payer OTHER, MEDICARE ==
[2024-10-07 18:21] LABS: PHOSPHORUS LEVEL 3.8 MG/DL (2.4-5.1); URIC ACID 7.2 MG/DL (3.7-9.2)
[2024-10-07 18:22] LABS: PTH INTACT 93.8 PG/ML (18.5-88.0)
== END ==
LOC: M LAB REF 16:23
PROVIDERS: ATTEND Internal Medicine
DX: N18.32 Chronic kidney disease, stage 3b (principal)

== ENCOUNTER → 2025-08-10 | Outpatient (CLI) | payer MEDICARE, OTHER ==
[~2025-08-10] MED LIST changes: +AMMO12CR4 EX; -AMMO12CR7 EX; +ISOVUE-370 76% 100 ML VIAL ONE
== END ==
LOC: M PLAIMG 08:21
PROVIDERS: ATTEND Internal Medicine
DX: R74.8 Abnormal levels of other serum enzymes (principal); K80.20 Calculus of gallbladder without cholecystitis without obstruction; K40.20 Bilateral inguinal hernia, without obstruction or gangrene, not specified as recurrent
CPT/HCPCS: 74177; Q9967